=== PATIENT | female | born 1995 | race Caucasian/White ===

== ENCOUNTER → 2016-03-24 | Outpatient (REF) | payer BC | LOC: M LAB REF 13:30 | PROVIDERS: ATTEND Advanced Practice Midwife | DX: Z12.4 Encounter for screening for malignant neoplasm of cervix (principal); Z11.3 Encounter for screening for infections with a predominantly sexual mode of transmission ==

== ENCOUNTER 2016-03-31 11:41 | Inpatient (IN) | payer BC ==
[~2016-03-31] VITALS: Ht 162.6 cm; Wt 74.2 kg
[2016-03-31] MEDS ORDERED: ONDANSETRON 4MG/2ML VIAL (J2405) As Ordered ONE (14:08)
[2016-03-31 14:21] LABS: BASO # 0.1 K/mm3 (0.0-0.2); BASO % 0.4 % (0.0-1.0); EOS # 0.1 K/mm3 (0.0-0.50); EOS % 0.4 % (0.0-3.0); LARGE UNSTAINED CELL # 0.2 K/mm3 (0.0-0.4); LARGE UNSTAINED CELL % 0.7 % (0.0-4.0); LYMPH # 2.1 K/mm3 (1.5-6.5); LYMPH % 9.5 % (24.0-44.0); MEAN CORPUSCULAR HEMOGLOBIN 30.8 pg (27.0-33.0); MEAN CORPUSCULAR HGB CONC 32.7 g/dl (32.0-36.5); MEAN CORPUSCULAR VOLUME 94.2 fl (80.0-96.0); MONO # 0.9 K/mm3 (0.0-0.8); MONO % 4.1 % (0.0-5.0); NEUTROPHILS # 19.2 K/mm3 (1.8-7.7); NEUTROPHILS % 84.9 % (36.0-66.0); PLATELET COUNT, AUTOMATED 346 k/mm3 (150-450); RED CELL DISTRIBUTION WIDTH 12.3 % (11.5-14.5); WHITE BLOOD COUNT 22.6 K/mm3 (4.0-10.0)
[2016-03-31 14:42] LABS: ANION GAP 29 MEQ/L (8-16); BLOOD UREA NITROGEN 23 MG/DL (7-18); CALCIUM LEVEL 9.8 MG/DL (8.5-10.1); CARBON DIOXIDE LEVEL 7 MEQ/L (21-32); CHLORIDE LEVEL 97 MEQ/L (98-107); CREATININE FOR GFR 1.46 MG/DL (0.55-1.02); GLOMERULAR FILTRATION RATE 47.7 (>60); SODIUM LEVEL 133 MEQ/L (136-145)
[2016-03-31 14:49] LABS: GLUCOSE, FASTING 524 MG/DL (70-105); POTASSIUM SERUM 5.9 MEQ/L (3.5-5.1)
[2016-03-31] MEDS ORDERED: HumuLIN R (REGULAR) INSULIN (NovoLIN R) **100U/ML** PER UNIT As Ordered ONE ×2 (15:03→15:21)
[2016-03-31] MEDS: INSULIN HUMAN REGULAR 100 UNITS in NS 99 ML IV SCH ×2 (15:30→18:35)
[2016-03-31 16:09] LABS: ABG BASE EXCESS -25.8 (-2.0-2.0); ABG DEVICE NASAL CANN; ABG HCO3 3.6 MEQ/L (22.0-26.0); ABG PARTIAL PRESSURE O2 123.4 mmHg (75.0-100.0); ABG STANDARD HCO3 7.1 MEQ/L (22.0-26.0); ABG TOTAL CO2 4.1 MEQ/L (22.0-29.0)
[2016-03-31] MEDS ORDERED: PARO10TA84 PO (16:12)
[2016-03-31] MEDS ORDERED: AMBI10TA PO (16:12)
[2016-03-31] MEDS ORDERED: SKYL13.5 IU (16:12)
[2016-03-31 16:14] LABS: ABG PARTIAL PRESSURE CO2 14.7 mmHg (35.0-45.0); ABG pH (ARTERIAL) 7.007 UNITS (7.350-7.450)
[2016-03-31] MEDS ORDERED: INSUH10VL SC (16:15)
[2016-03-31] MEDS ORDERED: NS 1,000 ML IV SCH (16:36)
--- NOTE | 2016-03-31 16:56 | REP ---
Portable chest x-ray: Single view. History: Diabetic ketoacidosis. Cold symptoms. Findings: EKG monitoring electrodes overlie the chest. Heart is not enlarged. The lungs are symmetrically aerated and clear. Pleural angles are sharp. Impression: No active disease. Signed by Del Huffman MD 03/31/2016 06:38 P
[2016-03-31 17:00] LABS: CONTROL LINE HCG INT CTR LINE PRESENT
--- NOTE | 2016-03-31 17:19 | EDDOCDS ---
Physician Documentation [facility] Name: Luz Rizvi Age: 20 yrs Sex: Female : 1995 Arrival Date: 03/31/2016 Time: 11:41 Bed 1 Private MD: Farzana - Complete Info On Cds Disposition: 03/31 15:38 Critical Care:. le Disposition: 03/31/16 15:37 Hospitalization ordered by Matias Alvarado for Observation. 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 - Bed requested for M ICU. - Status is Observation. ck1 - Condition is Stable. - Problem is an acute exacerbation. - Symptoms are unchanged. Historical: - Allergies: Tramadol HCl; - Home Meds: 1. Ambien 10 mg Oral tab 1 tab once daily 2. Paxil 10 mg Oral tab 1 tab once daily 3. Maegan 14 mcg/24 hour (3 years) intrauterine IUD 4. insulin novolog insulin pump - PMHx: Depression; Diabetes - IDDM: uncontrolled; - PSHx: Right ulnar neuropathy repair; Tonsillectomy; - Social history: Smoking status: Patient states former smoker of tobacco. No barriers to communication noted, The patient speaks fluent Khmer, Speaks appropriately for age. - Family history: Not pertinent. - : The pt / caregiver states he / she is not on anticoagulants. Home medication list is obtained from the patient. - Exposure Risk Screening:: None identified. 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 4 in. (162.56 cm); 13:53 BP 121 / 60 (auto/); ck1 13:53 Pulse 85 MON; Pulse Ox 96% ; ck1 14:45 BP 120 / 70; Pulse 119; Resp 24; Temp 98.4(O); Pulse Ox 99% ; mb9 15:18 BP 138 / 60 (auto/); ck1 15:19 Pulse 115 MON; Pulse Ox 100% ; ck1 15:48 BP 138 / 61 (auto/); ck1 15:49 Pulse 119 MON; Pulse Ox 100% ; ck1 16:00 BP 142 / 63 (auto/); ck1 16:00 Pulse 119 MON; Pulse Ox 100% ; ck1 16:15 BP 128 / 76 (auto/); ck1 16:16 Pulse 146 MON; Pulse Ox 75% ; ck1 16:30 BP 145 / 67 (auto/); ck1 16:31 Pulse 123 MON; Pulse Ox 100% ; ck1 16:45 BP 126 / 57 (auto/); ck1 16:46 Pulse 119 MON; Pulse Ox 100% ; ck1 17:00 BP 119 / 55 (auto/); ck1 17:01 Pulse 121 MON; Pulse Ox 100% ; ck1 17:17 BP 99 / 55; Pulse 120; Resp 18; Temp 98.4(T); Pulse Ox 99% on R/A; Pain 0/10; ck1 11:42 Body Mass Index 28.49 (75.30 kg, 162.56 cm) elp MDM: 13:42 Strep Screen, Nursing ordered. le 13:42 IV Saline Lock ordered. le 13:42 Accucheck ordered. le 13:42 NS 0.9% 1000 ml IV at bolus once ordered. le 13:43 -Influenza A&B Rapid Antigen - Nose Ordered. EDMS 13:43 CBC with Diff Ordered. EDMS 13:43 BMP Ordered. EDMS 13:43 Financial registration complete. mm15 13:48 Ondansetron 4 mg IVP once ordered. le 13:50 [facility] Payment Agreement was scanned into [employer] and attached to record. mm15 14:01 Fingerstick Blood Sugar Reviewed. le 14:16 ACETONE/KETONE Ordered. EDMS 14:50 Call Respiratory ordered. le 14:50 NS 0.9% 1000 ml IV at bolus once ordered. le 14:50 Insulin Regular Human 7.5 units IVP once ordered. le 14:50 -Arterial Blood Gas Ordered. EDMS 15:00 Call Respiratory complete. lbd 15:08 Insulin Regular Human 8 units IVP once ordered. mb9 15:08 GATS (NEGATIVE STREP SCREEN) Ordered. EDMS 15:13 CBC with Diff Reviewed. le 15:13 BMP Reviewed. le 15:13 ACETONE/KETONE Reviewed. le 15:13 -Influenza A&B Rapid Antigen - Nose Reviewed. le 15:15 Insulin Regular Human Infusion (0.1units/kg/hr) 0.1 units/kg/hr IV at calculated rate le Per protocol; 7 units/hr ordered. 15:15 Accucheck hourly ordered. le 15:15 BED REQUEST+ADM ordered. EDMS 15:21 Chest, 1 View Ordered. EDMS 15:22 ECG WITH READING ER PHYS+CARDIAG ordered. EDMS 15:45 TROPONIN Ordered. EDMS 15:45 URINALYSIS Ordered. EDMS 15:45 URINE CULTURE Ordered. EDMS 15:45 BLOOD CULTURES Ordered. EDMS 15:45 BLOOD CULTURES Ordered. EDMS 15:56 -Arterial Blood Gas Ordered. EDMS 16:17 -Arterial Blood Gas Reviewed. le 16:17 CBC with Diff Reviewed. le 16:17 BMP Reviewed. le 16:17 ACETONE/KETONE Reviewed. le 16:17 LIPASE Reviewed. le 16:17 TROPONIN Reviewed. le 16:28 Fingerstick Blood Sugar Ordered. EDMS 16:38 DRUG EVAL TOXICOLOGY ED ONLY Ordered. EDMS 16:38 HCG, QUALITATIVE Ordered. EDMS 16:41 Admission / Observation Status ordered. EDMS 16:41 NPO DIET ordered. EDMS 16:41 HEMOGLOBIN A1C Ordered. EDMS 16:42 MAGNESIUM LEVEL Ordered. EDMS 16:42 BASIC METABOLIC PROFILE Ordered. EDMS 16:42 BASIC METABOLIC PROFILE Ordered. EDMS 16:42 BASIC METABOLIC PROFILE Ordered. EDMS 16:42 BASIC METABOLIC PROFILE Ordered. EDMS 16:42 PHOSPHOROUS LEVEL Ordered. EDMS 16:43 RESPIRATORY PANEL Ordered. EDMS 16:50 DRUG EVAL TOXICOLOGY ED ONLY Ordered. EDMS Point of Care Testing: Blood Glucose: 13:46 Blood Glucose: 471 mg/dL; mb9 14:51 Blood Glucose: High; mb9 13:46 Izabela Alexa aware mb9 14:51 Izabela Alexa aware. No order recieved to draw glucomconfirm. mb9 Ranges: Administered Medications: 14:19 Drug: Ondansetron 4 mg [ondansetron HCl 2 mg/mL intravenous solution (2 mL)] Route: mb9 IVP; Site: right antecubital; 14:44 Follow up: Response: Nausea is unchanged mb9 14:20 Drug: NS 0.9% 1000 ml [sodium chloride 0.9 % intravenous solution] Route: IV; Rate: mb9 bolus; Site: right antecubital; 14:44 Follow up: IV Intake: 1000ml mb9 15:08 Drug: NS 0.9% 1000 ml [sodium chloride 0.9 % intravenous solution] Route: IV; Rate: mb9 bolus; Site: left antecubital; 15:50 Follow up: IV Status: Completed infusion ck1 15:08 Not Given (Other Intervention Used): Insulin Regular Human 7.5 units IVP once mb9 15:09 Drug: Insulin Regular Human 8 units [insulin regular human 100 unit/mL injection mb9 solution (0.08 mL)] {Co-Signature: jenny (Bertha Banda RN).} Route: IVP; Site: right antecubital; 15:27 Drug: Insulin Regular Human Infusion (0.1units/kg/hr) 7.53 units/hr [insulin regular mb9 human 100 unit/mL injection solution] {Co-Signature: ck1 (Olamide Gunderson RN).} Route: IV; Rate: calculated rate; Site: left antecubital; 17:16 Follow up: IV Status: Infusion continued upon admit ck1 Critical Care Time: 15:38 Critical care time: Bedside Care: 20 minutes, Consultation: 10 minutes. Total time: 30 le minutes Signatures: Dispatcher [employer] EDRenetta Ba, Lime Filter Operator Unit lbd Fabio Menendez RN RN mlb1 Olamide GundersonRN RN ck1 Izabela Hernandes FNP FNP le McGrath, Marlynn mm15 Fabio Aldrich,RN RN mb9 Casey Cannon RN RN mts Bertha Banda RN kpj Olamide Gunderson RN ck1 The chart was reviewed and I authenticate all verbal orders and agree with the evaluation and treatment provided.Corrections: (The following items were deleted from the chart) 14:16 13:50 ACETONE/KETONE+LAB ordered. EDMS EDMS 14:51 14:21 VENOUS BLOOD GAS+LAB ordered. EDMS EDMS 15:53 15:45 LIPASE ordered. EDMS EDMS 15:53 15:45 TROPONIN ordered. EDMS EDMS 16:41 15:52 CONSISTENT CARBOHYDRATE+DIET ordered. EDMS EDMS Attachments: 13:50 [facility] Payment Agreement mm15 MTDD
--- NOTE | 2016-03-31 17:19 | EDDOCDS ---
Nurse's Notes [facility] Name: Luz Rizvi Age: 20 yrs Sex: Female : 1995 Arrival Date: 03/31/2016 Time: 11:41 Bed 1 Private MD: Farzana - Complete Info On Cds Diagnosis: Diabetes mellitus due to underlying condition with ketoacidosis without coma Presentation: 03/31 11:47 Presenting complaint: Patient states: Flu like symptoms began last evening, body aches mlb1 N/V. Adult Sepsis Screening: The patient does not have new or worsening altered mentation. Patient's respiratory rate is less than 22. Systolic blood pressure is greater than 100. Patient has a qSOFA score of 0- Negative Sepsis Screen. Suicide/Homicide risk assessment- the patient denies having any suicidal and/or homicidal ideations and does not present with any other emotional, behavioral or mental health complaints. Transition of care: patient was not received from another setting of care. 11:47 Acuity: STEVIE Level 4 mlb1 11:47 Method Of Arrival: Walkin/Carried/Asstd mlb1 11:57 Status: The patient is a dependent. mlb1 14:14 Acuity level changed due to complexity of care. mb9 14:14 Acuity: STEVIE Level 3 mb9 Triage Assessment: 11:59 General: Appears distressed, Behavior is appropriate for age, cooperative. Pain: mlb1 Location: "all over" Pain currently is 8 out of 10 on a pain scale. HIV screening NA for this visit Offered previously. 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 Ambien 10 mg Oral tab 1 tab once daily 2. Paxil 10 mg Oral tab 1 tab once daily 3. Maegan 14 mcg/24 hour (3 years) intrauterine IUD 4. insulin novolog insulin pump - PMHx: Depression; Diabetes - IDDM: uncontrolled; - PSHx: Right ulnar neuropathy repair; Tonsillectomy; - Social history: Smoking status: Patient states former smoker of tobacco. No barriers to communication noted, The patient speaks fluent Bahamian, Speaks appropriately for age. - Family history: Not pertinent. - : The pt / caregiver states he / she is not on anticoagulants. Home medication list is obtained from the patient. - Exposure Risk Screening:: None identified. Screenin:28 Screening information is obtained from the patient. Fall risk: No risks identified. ck1 Assistance ADL's: requires no assistance with activities of daily living. Abuse/DV Screen: The patient / caregiver reports he/she is: not in a situation that causes fear, pain or injury. Nutritional screening: No deficits noted. Advance Directives: Currently, there is no health care proxy. home support is adequate. Assessment: 14:16 General: Appears uncomfortable, Behavior is appropriate for age, cooperative. Pain: mb9 Denies pain. Neurological: Level of Consciousness is awake, alert, Oriented to person, place, time. Respiratory: Airway is patent Respiratory effort is even, Respiratory pattern is Kussmaul Breath sounds are clear bilaterally. GI: Reports nausea, vomiting. 15:28 General: Appears ill, Behavior is. Pain: Denies pain. Neurological: Level of ck1 Consciousness is awake, alert, Oriented to person, place, time. Respiratory: Respiratory effort is unlabored, Respiratory pattern is regular, symmetrical. GI: Reports nausea, vomiting. Derm: Skin is pale. Musculoskeletal: No deficits noted. 16:23 General: Appears ill, Behavior is appropriate for age, cooperative. Neurological: Level ck1 of Consciousness is awake, alert, obeys commands, Oriented to person, place, time. Cardiovascular: Rhythm is sinus tachycardia Chest pain is denied. Respiratory: Respiratory effort is unlabored, Respiratory pattern is regular, symmetrical. GI: other tolerating PO fluids without difficulty. Derm: Skin is pale. 17:17 Reassessment: Patient appears in no apparent distress at this time. Patient denies pain ck1 at this time. Respiratory: Respiratory effort is unlabored, Respiratory pattern is regular, symmetrical. GI: Reports tolerance of fluids. Derm: Skin is pale. Musculoskeletal: No deficits noted. Vital Signs: 11:42 BP 137 / 63; Pulse 106; Resp 18; Temp 96.5; Pulse Ox 99% ; Weight 75.3 kg; Height 5 ft. elp 4 in. (162.56 cm); 13:53 BP 121 / 60 (auto/); ck1 13:53 Pulse 85 MON; Pulse Ox 96% ; ck1 14:45 BP 120 / 70; Pulse 119; Resp 24; Temp 98.4(O); Pulse Ox 99% ; mb9 15:18 BP 138 / 60 (auto/); ck1 15:19 Pulse 115 MON; Pulse Ox 100% ; ck1 15:48 BP 138 / 61 (auto/); ck1 15:49 Pulse 119 MON; Pulse Ox 100% ; ck1 16:00 BP 142 / 63 (auto/); ck1 16:00 Pulse 119 MON; Pulse Ox 100% ; ck1 16:15 BP 128 / 76 (auto/); ck1 16:16 Pulse 146 MON; Pulse Ox 75% ; ck1 16:30 BP 145 / 67 (auto/); ck1 16:31 Pulse 123 MON; Pulse Ox 100% ; ck1 16:45 BP 126 / 57 (auto/); ck1 16:46 Pulse 119 MON; Pulse Ox 100% ; ck1 17:00 BP 119 / 55 (auto/); ck1 17:01 Pulse 121 MON; Pulse Ox 100% ; ck1 17:17 BP 99 / 55; Pulse 120; Resp 18; Temp 98.4(T); Pulse Ox 99% on R/A; Pain 0/10; ck1 11:42 Body Mass Index 28.49 (75.30 kg, 162.56 cm) elp Vitals: 11:42 Log In Time: March 31, 2016 at 11:40. elp 15:14 Strep Screen is obtained and tested: Negative, [facility]G [facility] and sent. ED Course: 11:42 Patient visited by Vanessa Lyons PCA. elp 11:42 Other - Complete Info On Cds is Private Physician. elp 11:42 Patient moved to Waiting elp 11:43 Patient visited by Vanessa Lyons PCA. elp 11:43 Patient moved to Pre RCE elp 11:47 Patient visited by Fabio Menendez, REMBERTO. mlb1 11:50 Triage Initiated mlb1 12:00 Patient visited by Fabio Menendez, REMBERTO. mlb1 13:14 [facility]abela Hernandes [facility] le 13:14 Patient moved to 31 mcp 13:26 Patient visited by Izabela Hernandes FNP. le 13:26 Patient visited by Izabela Hernandes FNP. le 13:50 [facility] Payment Agreement was scanned into [employer] and attached to record. mm15 13:53 Patient name changed from Luz\\S\\\\S\\Dmitri\\S\\ to Luz\\S\\ \\S\\Dmitri. EDMS 14:17 Inserted saline lock: 18 gauge in right antecubital area and blood collected. The mb9 patient tolerated the procedure well. 14:19 Patient visited by Fabio Aldrich RN. mb9 14:19 ACETONE/KETONE Sent. mb9 14:59 Patient moved to 1 [facility] 15:12 Patient visited by Olamide Gunderson RN. ck1 15:16 GATS (NEGATIVE STREP SCREEN) Sent. ck1 15:26 Patient visited by Olamide Gunderson RN. ck1 15:26 Inserted saline lock: 20 gauge in left antecubital area The patient tolerated the ck1 procedure well. 15:28 The patient / caregiver is instructed regarding the plan of care and ED course. ck1 15:37 Matias Alvarado is Hospitalizing Provider. le 15:37 EKG done. (by ED staff). Reviewed by Izabela MELENDEZ. jrd 16:06 -Arterial Blood Gas Sent. cs15 16:23 PO fluids given. Pillow given. ck1 16:24 No procedures done that require assistance. ck1 17:13 Chest, 1 View Returned. EDMS Administered Medications: 14:19 Drug: Ondansetron 4 mg [ondansetron HCl 2 mg/mL intravenous solution (2 mL)] Route: mb9 IVP; Site: right antecubital; 14:44 Follow up: Response: Nausea is unchanged mb9 14:20 Drug: NS 0.9% 1000 ml [sodium chloride 0.9 % intravenous solution] Route: IV; Rate: mb9 bolus; Site: right antecubital; 14:44 Follow up: IV Intake: 1000ml mb9 15:08 Drug: NS 0.9% 1000 ml [sodium chloride 0.9 % intravenous solution] Route: IV; Rate: mb9 bolus; Site: left antecubital; 15:50 Follow up: IV Status: Completed infusion ck1 15:08 Not Given (Other Intervention Used): Insulin Regular Human 7.5 units IVP once mb9 15:09 Drug: Insulin Regular Human 8 units [insulin regular human 100 unit/mL injection mb9 solution (0.08 mL)] {Co-Signature: jenny (Bertha Banda RN).} Route: IVP; Site: right antecubital; 15:27 Drug: Insulin Regular Human Infusion (0.1units/kg/hr) 7.53 units/hr [insulin regular mb9 human 100 unit/mL injection solution] {Co-Signature: ck1 (Olamide Gunderson RN).} Route: IV; Rate: calculated rate; Site: left antecubital; 17:16 Follow up: IV Status: Infusion continued upon admit ck1 Point of Care Testing: Blood Glucose: 13:46 Blood Glucose: 471 mg/dL; mb9 14:51 Blood Glucose: High; mb9 13:46 Izabela Alexa aware mb9 14:51 Izabela Alexa aware. No order recieved to draw glucomconfirm. mb9 Ranges: Intake: 14:44 IV: 1000.00ml; Total: 1000.00ml. mb9 RT: 16:06 ABG's drawn from left radial artery allens test done and positive pressure held for 5 cs15 minutes no bleeding noted pressure bandage applied specimen sent pt. tolerated well. Oxygen is room air. Respiratory: Respiratory pattern is Kussmaul. Order Results: Lab Order: -Influenza A&B Rapid Antigen - Nose; SPEC'M 03/31/16 14:02 Test: INFLUENZA A RAPID SCR by ICA; Value: INFLUENZA A RESULTS NEGATIVE; Status: F Test: INFLUENZA A RAPID SCR by ICA; Value: Comments:; Status: F Test: INFLUENZA B RAPID SCR by ICA; Value: INFLUENZA B RESULTS NEGATIVE; Status: F Test Note: ; The Influenza test is a direct rapid immunoassay for the qualitative detection of Influenza viral antigen. Cell culture (Viral Culture) testing should be considered to confirm NEGATIVE results and to assist in detecting other viruses that can provide similar clinical symptoms. Please contact the lab within 24 hours ([phone]) if confirmatory testing is desired. Lab Order: CBC with Diff; SPEC'M 03/31/16 14:02 Test: WHITE BLOOD COUNT; Value: 22.6; Range: 4.0-10.0; Abnormal: Above high normal; Units: K/mm3; Status: F Test: RED BLOOD COUNT; Value: 4.98; Range: 4.00-5.40; Units: M/mm3; Status: F Test: HEMOGLOBIN; Value: 15.4; Range: 12.0-16.0; Units: g/dl; Status: F Test: HEMATOCRIT; Value: 46.9; Range: 36.0-47.0; Units: %; Status: F Test: MEAN CORPUSCULAR VOLUME; Value: 94.2; Range: 80.0-96.0; Units: fl; Status: F Test: MEAN CORPUSCULAR HEMOGLOBIN; Value: 30.8; Range: 27.0-33.0; Units: pg; Status: F Test: MEAN CORPUSCULAR HGB CONC; Value: 32.7; Range: 32.0-36.5; Units: g/dl; Status: F Test: RED CELL DISTRIBUTION WIDTH; Value: 12.3; Range: 11.5-14.5; Units: %; Status: F Test: PLATELET COUNT, AUTOMATED; Value: 346; Range: 150-450; Units: k/mm3; Status: F Test: NEUTROPHILS %; Value: 84.9; Range: 36.0-66.0; Abnormal: Above high normal; Units: %; Status: F Test: LYMPH %; Value: 9.5; Range: 24.0-44.0; Abnormal: Below low normal; Units: %; Status: F Test: MONO %; Value: 4.1; Range: 0.0-5.0; Units: %; Status: F Test: EOS %; Value: 0.4; Range: 0.0-3.0; Units: %; Status: F Test: BASO %; Value: 0.4; Range: 0.0-1.0; Units: %; Status: F Test: LARGE UNSTAINED CELL %; Value: 0.7; Range: 0.0-4.0; Units: %; Status: F Test: NEUTROPHILS #; Value: 19.2; Range: 1.8-7.7; Abnormal: Above high normal; Units: K/mm3; Status: F Test: LYMPH #; Value: 2.1; Range: 1.5-6.5; Units: K/mm3; Status: F Test: MONO #; Value: 0.9; Range: 0.0-0.8; Abnormal: Above high normal; Units: K/mm3; Status: F Test: EOS #; Value: 0.1; Range: 0.0-0.50; Units: K/mm3; Status: F Test: BASO #; Value: 0.1; Range: 0.0-0.2; Units: K/mm3; Status: F Test: LARGE UNSTAINED CELL #; Value: 0.2; Range: 0.0-0.4; Units: K/mm3; Status: F Lab Order: BMP; SPEC'03/31/16 14:02 Test: GLUCOSE, FASTING; Value: 524; Range: 70-105; Abnormal: Above upper panic limits; Units: MG/DL; Status: F Test: BLOOD UREA NITROGEN; Value: 23; Range: 7-18; Abnormal: Above high normal; Units: MG/DL; Status: F Test: CREATININE FOR GFR; Value: 1.46; Range: 0.55-1.02; Abnormal: Above high normal; Units: MG/DL; Status: F Test: GLOMERULAR FILTRATION RATE; Value: 47.7; Range: >60; Abnormal: Below low normal; Status: F Test: SODIUM LEVEL; Value: 133; Range: 136-145; Abnormal: Below low normal; Units: MEQ/L; Status: F Test: POTASSIUM SERUM; Value: 5.9; Range: 3.5-5.1; Abnormal: Above high normal; Units: MEQ/L; Status: F Test: CHLORIDE LEVEL; Value: 97; Range: 98-107; Abnormal: Below low normal; Units: MEQ/L; Status: F Test: CARBON DIOXIDE LEVEL; Value: 7; Range: 21-32; Abnormal: Below low normal; Units: MEQ/L; Status: F Test: ANION GAP; Value: 29; Range: 8-16; Abnormal: Above high normal; Units: MEQ/L; Status: F Test: CALCIUM LEVEL; Value: 9.8; Range: 8.5-10.1; Units: MG/DL; Status: F Test Note: ; Units are mL/min/1.73 m2 Chronic Kidney Disease Staging per NKF: Stage I & II GFR >=60 Normal to Mildly Decreased Stage III GFR 30-59 Moderately Decreased Stage IV GFR 15-29 Severely Decreased Stage V GFR <15 Very Little GFR Left ESRD GFR <15 on DROP HAMMER SETTER UP Lab Order: Fingerstick Blood Sugar; SPEC'03/31/16 13:46 Test: BEDSIDE GLUCOSE; Value: 471; Range: 70-105; Abnormal: Above high normal; Units: MG/DL; Status: F Lab Order: ACETONE/KETONE; SPEC'M 03/31/16 14:02 Test: ACETONE/KETONE; Value: > 46.00; Range: <2.81; Abnormal: Above high normal; Units: MG/DL; Status: F Lab Order: -Arterial Blood Gas; SPEC'M 03/31/16 16:04 Test: ABG pH (ARTERIAL); Value: 7.007; Range: 7.350-7.450; Abnormal: Critical Low; Units: UNITS; Status: F Test: ABG PARTIAL PRESSURE CO2; Value: 14.7; Range: 35.0-45.0; Abnormal: Critical Low; Units: mmHg; Status: F Test: ABG PARTIAL PRESSURE O2; Value: 123.4; Range: 75.0-100.0; Abnormal: Above high normal; Units: mmHg; Status: F Test: ABG TOTAL CO2; Value: 4.1; Range: 22.0-29.0; Abnormal: Below low normal; Units: MEQ/L; Status: F Test: ABG HCO3; Value: 3.6; Range: 22.0-26.0; Abnormal: Below low normal; Units: MEQ/L; Status: F Test: ABG BASE EXCESS; Value: -25.8; Range: -2.0-2.0; Abnormal: Below low normal; Status: F Test: ABG STANDARD HCO3; Value: 7.1; Range: 22.0-26.0; Abnormal: Below low normal; Units: MEQ/L; Status: F Test: ABG O2 SATURATION; Value: 97.5; Range: 95.0-99.0; Units: %; Status: F Test: ABG DEVICE; Value: NASAL ALIA; Status: F Lab Order: TROPONIN; SPEC'M 03/31/16 14:02 Test: TROPONIN I; Value: < 0.02; Range: < 0.10; Units: NG/ML; Status: F Test Note: ; Troponin I Reference Interval for [employer] LOCI: 99th Percentile= 0.00-0.045 ng/ml Risk Stratification: <= 0.10 ng/ml Decreased Risk for Adverse Clinical Events. 0.10-1.50 ng/ml Increased Risk for Adverse Clinical Events. Evaluation of additional criterion and/or repeat testing in 2-6 hours is suggested to rule out myocardial damage. >= 1.50 ng/ml Indicative of Myocardial Injury. Lab Order: LIPASE; SPEC' 03/31/16 14:02 Test: LIPASE; Value: 50; Range: 73-393; Abnormal: Below low normal; Units: U/L; Status: F Lab Order: Fingerstick Blood Sugar; [facility]03/31/16 16:19 Test: BEDSIDE GLUCOSE; Value: 534; Range: 70-105; Abnormal: Above upper panic limits; Units: MG/DL; Status: F Test Note: ; RN Notified Lab Order: HCG, QUALITATIVE; SPEC03/31/16 14:02 Test: HCG, SERUM QUALITATIVE; Value: NEGATIVE; Range: NEGATIVE; Status: F Lab Order: HEMOGLOBIN A1C; [facility]' 03/31/16 14:02 Test: HEMOGLOBIN A1c; Value: 8.5; Range: 4.5-6.2; Abnormal: Above high normal; Units: %; Status: F Test: ESTIMATED AVERAGE GLUCOSE; Value: 197; Range: 60-110; Abnormal: Above high normal; Units: MG/DL; Status: F Radiology Order: Chest, 1 View Test: Chest, 1 View REASON FOR EXAMINATION: DKA, cold sxs; Portable chest x-ray: Single view.; ; History: Diabetic ketoacidosis. Cold symptoms.; ; Findings: EKG monitoring electrodes overlie the chest. Heart is not enlarged.; The lungs are symmetrically aerated and clear. Pleural angles are sharp.; ; Impression:; ; No active disease.; ; ; ; ; Unreviewed; Outcome: 15:37 Decision to Hospitalize by Provider. le 17:00 Discharge Assessment: Patient awake, alert and oriented x 3. No cognitive and/or ck1 functional deficits noted. Patient verbalized understanding of disposition instructions. patient administered narcotics - no. No special radiology studies were completed. Property :Personal belongings accompany Pt. 17:09 The following High Risk Discharge criteria are identified: None. Admitted to ICU ck1 accompanied by nurse, accompanied by tech, via stretcher, on monitor, with chart. Condition: stable. Admission hand-off: Report called to Marcia Wagner RN. 17:18 Patient left the ED. ck1 Signatures: Dispatcher [employer] EDFelicita Bocanegra, RN RN [facility] Fabio Menendez RN RN mlb1 Olamide Gunderson RN RN ck1 Izabela Hernandes, MILITARY NURSE MILITARY NURSE Francoise Perez mm15 Patchen, Vanessa, CLERK GENERAL CLERK GENERAL elp Syed Duff, CLERK GENERAL CLERK GENERAL jrd Fabio Aldrich RN RN mb9 Matthew Rodriguez,RT RT cs15 Bertha Banda RN [facility] Olamide Gunderson RN ck1 Corrections: (The following items were deleted from the chart) 14:52 14:45 Blood Glucose: Notes=Izabela Liu aware., Blood Glucose Reading=High. mary grace mb9 MTDD
[2016-03-31 17:27] LABS: CALCIUM LEVEL 8.6 MG/DL (8.5-10.1); CREATININE FOR GFR 1.27 MG/DL (0.55-1.02); MAGNESIUM LEVEL 1.8 MG/DL (1.8-2.4); PHOSPHORUS LEVEL 4.9 MG/DL (2.5-4.9); POTASSIUM SERUM 4.6 MEQ/L (3.5-5.1)
[2016-03-31 17:30] VITALS: BP 122/56
[2016-03-31] MEDS: INSULIN IV RATE CHANGE DOCUMENTATION ML/HR XX SCH ×4 (17:36→23:05)
[2016-03-31] MEDS: cefTRIAXone SOD 1 GM in D5W MINI-BAG PLUS 50 ML IV SCH (17:45)
[2016-03-31 18:00] VITALS: BP 125/59
[2016-03-31 19:40] LABS: CALCIUM LEVEL 8.7 MG/DL (8.5-10.1); CREATININE FOR GFR 1.25 MG/DL (0.55-1.02); GLOMERULAR FILTRATION RATE 57.1 (>60); POTASSIUM SERUM 4.7 MEQ/L (3.5-5.1)
[2016-03-31 20:00] VITALS: BP 111/54
[2016-03-31 20:10] LABS: AMPHETAMINES LEVEL URINE NEGATIVE (NEGATIVE); BENZODIAZEPINES URINE NEGATIVE (NEGATIVE); COCAINE METABOLITE URINE NEGATIVE (NEGATIVE); CONTROL LINE INT CTR LINE PRESENT; METHADONE URINE NEGATIVE (NEGATIVE); OPIATES URINE NEGATIVE (NEGATIVE); TRICYCLIC ANTIDEPRESS URINE NEGATIVE (NEGATIVE)
--- NOTE | 2016-03-31 20:30 | HPE ---
DATE OF ADMISSION: 03/31/2016 PRIMARY CARE PROVIDER: Bertha Garcia CHIEF COMPLAINT: Weakness, belly pain. HISTORY OF PRESENT ILLNESS: The patient is a 20-year-old female, type 1 diabetic, insulin dependent on an insulin infusion pump, who was in her usual state of health the day before yesterday; however, over the last 24 to 48 hours she has had progressively worsening body aches, weakness. She reports some subjective chills, but never measured her body temperature. She denies cough, sick contacts, diarrhea, changes in diet, changes in her pump infusion site. Otherwise, she is feeling well. Prior to this, she reports feeling dry mouth and abdominal pain worsening today. The patient is unfamiliar with what diabetic ketoacidosis is. She tells me that she was last in the hospital with a very high blood sugar greater than two to three years ago. PAST MEDICAL HISTORY: 1. Insomnia. The patient is on Ambien. 2. Depression. The patient is on Paxil. ALLERGIES: TRAMADOL, extremities go numb. PAST SURGICAL HISTORY: Right ulnar neuropathy repair, tonsillectomy. SOCIAL HISTORY: The patient is a former smoker, she quit approximately one month ago. She denies any alcohol or illicit drug use. She lives with her boyfriend and his brother. FAMILY HISTORY: Noncontributory. REVIEW OF SYSTEMS: Negative other than in the history of present illness. HOME MEDICATIONS: - Ambien 10 mg at night - Paxil 10 mg daily - 14 mcg per 24 hour cycle for the last three years - intrauterine device - insulin infusion pump PHYSICAL EXAMINATION: Blood pressure 137/63, pulse 106, respiratory rate 18, temperature 96.5, oxygen saturation 99% on room air. GENERAL: She is a young, slim, female lying on a stretcher at a 30 degree angle. She does not appear to be in any acute distress. She appears to be tired. She is awake, alert, oriented times three. HEENT: Cranial nerves II through XII are grossly intact. She has very dry mucous membranes. No elevation of central venous pressure. CARDIOVASCULAR EXAM: S1, S2. She is mildly tachycardic. RESPIRATORY EXAM: Clear. ABDOMINAL EXAM: Benign. Her pump infusion site does not appear to be scarred or abnormal in any way. EXTREMITIES: No clubbing, cyanosis or edema. LABORATORY STUDIES: WBC 22.6, hemoglobin 15.4, hematocrit 46.9, platelet count 346. Arterial blood gas shows pH of 7.00, PCO2 14.7, PO2 of 123.4. Chemistry panel: Sodium 133, potassium 5.9, chloride 97, bicarbonate is 7, anion gap is 29, BUN 23, creatinine 1.4, fasting glucose 524, beta hydroxybutyrate level is greater than 46. Influenza swab is pending. Blood culture is pending. Group A Streptococcus screen is pending. IMAGING: The patient did have a chest x-ray, which does not reveal any active disease by a preliminary read. ASSESSMENT AND PLAN: This is a 20-year-old female presenting now with diabetic ketoacidosis. 1. DKA. The patient will be admitted to the medical intensive care unit (ICU). We will check two hour basic metabolic panel (BMP), every 1 hour fingersticks. She has been started on insulin drip in the emergency room. We will provide her with generous normal saline. We will check a magnesium and phosphorous level, as well as a hemoglobin A1/c. We will check a UA, urine culture, lipase, troponin. At this time, it is unclear the etiology for this patient's DKA. She appears to be adherent with medical therapies and there is likely some secondary cause driving it. At this time, we have no UA. The patient does have significant leukocytosis and tachycardia. I will err on the side of caution and provide her with ceftriaxone 1 gram IV every 24 hours. I will also check a respiratory panel to rule out potential viral syndrome driving this process. She will be admitted to the intensive care unit (ICU) and treated for DKA in the usual protocol manner. 2. Depression. The patient will be continued on Paxil. 3. Insomnia. Given the patient is somewhat lethargic and acidotic, we will hold her Ambien. 4. Deep vein thrombosis (DVT) prophylaxis. The patient will be on Lovenox. 5. Acute kidney injury. This is likely secondary to osmotic diuresis. 6. Anion gap acidosis secondary to DKA. 7. Hyperkalemia secondary to dehydration. We will check every 2 hour BMP and monitor closely while she is rehydrated. DISPOSITION: The patient is admitted to the medical intensive care unit to Dr. Kelly's service, who will continue following the patient tomorrow morning at 7:00 a.m.
[2016-03-31 21:08] LABS: CALCIUM LEVEL 8.3 MG/DL (8.5-10.1); CREATININE FOR GFR 1.23 MG/DL (0.55-1.02); GLOMERULAR FILTRATION RATE 58.1 (>60); POTASSIUM SERUM 4.6 MEQ/L (3.5-5.1)
[2016-03-31 22:00] VITALS: BP 112/53
[2016-03-31 22:49] LABS: ANION GAP 17 MEQ/L (8-16); BLOOD UREA NITROGEN 16 MG/DL (7-18); CALCIUM LEVEL 8.2 MG/DL (8.5-10.1); CARBON DIOXIDE LEVEL 10 MEQ/L (21-32); CHLORIDE LEVEL 112 MEQ/L (98-107); CREATININE FOR GFR 1.17 MG/DL (0.55-1.02); GLOMERULAR FILTRATION RATE > 60.0 (>60); GLUCOSE, FASTING 229 MG/DL (70-105); POTASSIUM SERUM 4.1 MEQ/L (3.5-5.1); SODIUM LEVEL 139 MEQ/L (136-145)
[2016-03-31] MEDS: D5W/0.45% SODIUM CHLORIDE 1,000 ML IV SCH (23:26)
[2016-04-01] VITALS (8 sets, daily range): BP systolic 96–120; BP diastolic 50–58
[2016-04-01] MEDS: INSULIN IV RATE CHANGE DOCUMENTATION ML/HR XX SCH ×5 (00:09→22:09)
[2016-04-01 01:04] LABS: ANION GAP 16 MEQ/L (8-16); BLOOD UREA NITROGEN 15 MG/DL (7-18); CALCIUM LEVEL 8.1 MG/DL (8.5-10.1); CARBON DIOXIDE LEVEL 11 MEQ/L (21-32); CHLORIDE LEVEL 109 MEQ/L (98-107); CREATININE FOR GFR 1.07 MG/DL (0.55-1.02); GLOMERULAR FILTRATION RATE > 60.0 (>60); GLUCOSE, FASTING 254 MG/DL (70-105); POTASSIUM SERUM 3.9 MEQ/L (3.5-5.1); SODIUM LEVEL 136 MEQ/L (136-145)
[2016-04-01 03:08] LABS: ANION GAP 16 MEQ/L (8-16); BLOOD UREA NITROGEN 15 MG/DL (7-18); CARBON DIOXIDE LEVEL 13 MEQ/L (21-32); CHLORIDE LEVEL 109 MEQ/L (98-107); CREATININE FOR GFR 1.12 MG/DL (0.55-1.02); GLOMERULAR FILTRATION RATE > 60.0 (>60); GLUCOSE, FASTING 290 MG/DL (70-105); SODIUM LEVEL 138 MEQ/L (136-145)
[2016-04-01 05:08] LABS: ANION GAP 11 MEQ/L (8-16); BLOOD UREA NITROGEN 14 MG/DL (7-18); CARBON DIOXIDE LEVEL 16 MEQ/L (21-32); CHLORIDE LEVEL 109 MEQ/L (98-107); CREATININE FOR GFR 1.08 MG/DL (0.55-1.02); GLOMERULAR FILTRATION RATE > 60.0 (>60); GLUCOSE, FASTING 304 MG/DL (70-105); POTASSIUM SERUM 3.9 MEQ/L (3.5-5.1); SODIUM LEVEL 136 MEQ/L (136-145)
[2016-04-01] MEDS: ACETAMINOPHEN TAB 650MG DOSE (2X325MG) PO PRN ×2 (05:19→15:37)
[2016-04-01] MEDS: ONDANSETRON 4MG/2ML VIAL (J2405) IV PRN ×2 (05:19→18:30)
[2016-04-01] MEDS: D5W/0.45% SODIUM CHLORIDE 1,000 ML IV SCH (05:20)
--- NOTE | 2016-04-01 06:50 | ECGEPIP ---
Stationary ECG Study [facility] - ED Test Date: 2016-03-31 Pat Name: SHILPA MARAVILLA Department: Room: - Gender: F Trauma Program Manager: [email or web address] : 1995 Requested By: SHARON MELENDEZ Order Number: [id number] Reading MD: Melvi Ellison Measurements Intervals [place] Rate: 117 P: 70 FL: 161 QRS: 17 QRSD: 79 T: 56 QT: 315 QTc: 440 Interpretive Statements SINUS TACHYCARDIA WITH OCCASIONAL VENTRICULAR PREMATURE COMPLEXES ABNORMAL RHYTHM ECG LOW VOLTAGE LIMB INCREASED RATE 09/12/13 Electronically Signed On 04-01-2016 6:49:52 EST by Melvi Ellison
[2016-04-01 07:40] LABS: ANION GAP 13 MEQ/L (8-16); BLOOD UREA NITROGEN 13 MG/DL (7-18); CALCIUM LEVEL 8.1 MG/DL (8.5-10.1); CARBON DIOXIDE LEVEL 15 MEQ/L (21-32); CHLORIDE LEVEL 108 MEQ/L (98-107); CREATININE FOR GFR 1.06 MG/DL (0.55-1.02); GLOMERULAR FILTRATION RATE > 60.0 (>60); GLUCOSE, FASTING 299 MG/DL (70-105); POTASSIUM SERUM 3.8 MEQ/L (3.5-5.1); SODIUM LEVEL 136 MEQ/L (136-145)
[2016-04-01 08:33] LABS: ANION GAP 12 MEQ/L (8-16); BLOOD UREA NITROGEN 13 MG/DL (7-18); CALCIUM LEVEL 8.1 MG/DL (8.5-10.1); CARBON DIOXIDE LEVEL 16 MEQ/L (21-32); CHLORIDE LEVEL 108 MEQ/L (98-107); CREATININE FOR GFR 0.99 MG/DL (0.55-1.02); GLOMERULAR FILTRATION RATE > 60.0 (>60); GLUCOSE, FASTING 295 MG/DL (70-105); POTASSIUM SERUM 3.9 MEQ/L (3.5-5.1); SODIUM LEVEL 136 MEQ/L (136-145)
[2016-04-01] MEDS: PARoxetine 10MG TABLET PO SCH (08:55)
[2016-04-01] MEDS: ENOXAPARIN 40 MG/0.4 ML SYRINGE (J1650) SC SCH (08:55)
[2016-04-01] MEDS: PANTOPRAZOLE 40MG INJ (PROTONIX) (C9113) IV SCH (08:55)
[2016-04-01 10:13] LABS: MEAN CORPUSCULAR HGB CONC 34.5 g/dl (32.0-36.5); RED CELL DISTRIBUTION WIDTH 13.5 % (11.5-14.5); WHITE BLOOD COUNT 18.9 K/mm3 (4.0-10.0)
[2016-04-01 10:38] LABS: MEAN CORPUSCULAR VOLUME 86.9 fl (80.0-96.0)
[2016-04-01 10:40] LABS: ANION GAP 11 MEQ/L (8-16); BLOOD UREA NITROGEN 12 MG/DL (7-18); CALCIUM LEVEL 8.2 MG/DL (8.5-10.1); CARBON DIOXIDE LEVEL 18 MEQ/L (21-32); CHLORIDE LEVEL 108 MEQ/L (98-107); CREATININE FOR GFR 1.04 MG/DL (0.55-1.02); GLOMERULAR FILTRATION RATE > 60.0 (>60); GLUCOSE, FASTING 296 MG/DL (70-105); POTASSIUM SERUM 3.7 MEQ/L (3.5-5.1); SODIUM LEVEL 137 MEQ/L (136-145)
[2016-04-01 12:54] LABS: ANION GAP 11 MEQ/L (8-16); BLOOD UREA NITROGEN 11 MG/DL (7-18); CALCIUM LEVEL 8.3 MG/DL (8.5-10.1); CARBON DIOXIDE LEVEL 18 MEQ/L (21-32); CHLORIDE LEVEL 107 MEQ/L (98-107); CREATININE FOR GFR 0.99 MG/DL (0.55-1.02); GLOMERULAR FILTRATION RATE > 60.0 (>60); GLUCOSE, FASTING 301 MG/DL (70-105); POTASSIUM SERUM 3.9 MEQ/L (3.5-5.1); SODIUM LEVEL 136 MEQ/L (136-145)
--- NOTE | 2016-04-01 13:29 | IPNPDOC ---
Assessment/Plan Date Seen The patient was seen on 04/01/16. Plan / VTE VTE Prophylaxis Ordered?: Yes Plan Plan Text 1. Diabetic ketoacidosis possibly secondary to viral respiratory infection The patient's anion gap has closed this morning The patient has been started on a diet IV insulin and IV fluids have been stopped The patient has been started back on her insulin pump We will continue to monitor her fingersticks 2. Depression. Continue Paxil. 3. Deep vein thrombosis (DVT) prophylaxis. The patient will be on Lovenox. 4. Acute kidney injury secondary to intravascular volume depletion from DKA Status post IV fluid hydration Serum creatinine has returned back to its baseline Subjective Review of Systems CC/HPI The patient is a 20-year-old female admitted with a reason for visit of Dka ( Diabetic Ketoacidoses). General: Reports: Fatigue, Malaise, Denies: Chills, Night Sweats Constitutional: Denies: Chills, Fever Eyes: Denies: Pain, Vision change ENT: Reports: Head Aches, Denies: Ear Pain Skin: Denies: Lesions, Rash Pulmonary: Reports: Cough, Denies: Dyspnea Cardiovascular: Denies: Chest Pain, Palpitations Gastrointestinal: Denies: Nausea, Vomiting Hematologic: Denies: Bleeding Excessively, Bruising Objective Physical Examination General Exam: Positive: Alert, Cooperative, No Acute Distress ENT Exam: Positive: Atraumatic, Mucous membr. moist/pink Chest Exam: Positive: Clear to auscultation, Normal air movement Heart Exam: Positive: Normal S1, Normal S2, Rate Normal Abdomen Exam: Positive: Soft, Negative: Tenderness Extremity Exam: Negative: Edema, Tenderness Vital Signs/I&O Vital Signs Date Time Temp Pulse Resp B/P Pulse Ox O2 Delivery O2 Flow Rate FiO2 04/01/16 12:00 99.1 98 18 115/56 99 Room Air I&O- Last 24 Hours up to 6 AM 04/01/16 06:00 Intake Total 1925 ml Output Total 1550 ml Balance 375 ml Laboratory Data Labs 24H Laboratory Tests 2 03/31/16 13:46: Bedside Glucose (Misc Panel) 471H 03/31/16 14:02: Anion Gap 29H, B-Hydroxybutyrate > 46.00H, White Blood Count 22.6H, Red Blood Count 4.98, Hemoglobin 15.4, Hematocrit 46.9, Mean Corpuscular Volume 94.2, Mean Corpuscular Hemoglobin 30.8, Mean Corpuscular Hemoglobin Concent 32.7, Red Cell Distribution Width 12.3, Platelet Count 346, Neutrophils (%) (Auto) 84.9H, Lymphocytes (%) (Auto) 9.5L, Monocytes (%) (Auto) 4.1, Eosinophils (%) (Auto) 0.4, Basophils (%) (Auto) 0.4, Neutrophils # (Auto) 19.2H, Lymphocytes # (Auto) 2.1, Monocytes # (Auto) 0.9H, Eosinophils # (Auto) 0.1, Basophils # (Auto) 0.1, Blood Urea Nitrogen 23H, Creatinine 1.46H, Sodium Level 133L, Potassium Level 5.9H, Chloride Level 97L, Carbon Dioxide Level 7L, Calcium Level 9.8, Estimated Mean Plasma Glucose 197H, Glomerular Filtration Rate 47.7L, Hemoglobin A1c 8.5H , Human Chorionic Gonadotropin, Qual NEGATIVE, Large Unclassified Cells # 0.2, Large Unclassified Cells % 0.7, Lipase 50L, Troponin I < 0.02 03/31/16 16:04: Arterial Blood pH 7.007*L, Arterial Blood Partial Pressure CO2 14.7*L, Arterial Blood Partial Pressure O2 123.4H, Arterial Blood Total CO2 4.1L, Arterial Blood HCO3 3.6L, Arterial Blood Base Excess -25.8L, Arterial Blood Oxygen Saturation 97.5, Blood Gas Bicarbonate Standard 7.1L, Oxygen Delivery Device NASAL ALIA 03/31/16 16:19: Bedside Glucose (Misc Panel) 534*H 03/31/16 16:55: Anion Gap 25H, Blood Urea Nitrogen 21H, Creatinine 1.27H, Sodium Level 137, Potassium Level 4.6#, Chloride Level 107, Carbon Dioxide Level 5L, Calcium Level 8.6, Glomerular Filtration Rate 56.0L, Magnesium Level 1.8, Phosphorus Level 4.9 03/31/16 18:16: Bedside Glucose (Misc Panel) 320H 03/31/16 18:31: Urine Amorphous Sediment , Urine Amphetamine Level NEGATIVE, Urine Benzodiazepines Screen NEGATIVE, Urine Cannabinoids NEGATIVE, Urine Cocaine Metabolite NEGATIVE, Urine Opiates Screen NEGATIVE, Urine Appearance HAZY, Urine Color STRAW, Urine pH 5.0, Urine Specific [place] 1.014, Urine Protein 1+H , Urine Glucose (UA) 3+H, Urine Ketones 2+H, Urine Urobilinogen 0.2, Urine Bilirubin NEGATIVE, Urine Leukocyte Esterase NEGATIVE, Urine Bacteria (Auto) 1+H , Urine Barbiturates, Qualitative NEGATIVE, Urine Blood 1+H, Urine Calcium Carbonate Cryst(Auto) , Urine Calcium Oxalate Cryst (Auto) , Urine Calcium Phosphate [place] (Auto) , Urine Cellular Casts , Urine Cystine Crystals , Urine Granular Casts (Auto) , Urine Hyaline Casts (Auto) 0, Urine Leucine Crystals , Urine Methadone Screen NEGATIVE, Urine Mucus (Auto) SMALL, Urine Nitrite NEGATIVE, Urine Oval Fat Bodies (Auto) , Urine RBC (Auto) 1, Urine Renal Epithelial Cells , Urine Sperm (Auto) , Urine Squamous Epithelial Cells 3, Urine Transitional Epithelial Cells , Urine Trichomonas (Auto) , Urine Tricyclic Antidepressants NEGATIVE, Urine Triple Phosphate Cryst (Auto) , Urine Tyrosine Crystals , Urine Uric Acid Crystals (Auto) , Urine WBC (Auto) 2, Urine Waxy Casts (Auto) , Urine Yeast-Like Cells (Auto) 03/31/16 18:42: Anion Gap 23H, Blood Urea Nitrogen 19H, Creatinine 1.25H, Sodium Level 138, Potassium Level 4.7, Chloride Level 109H, Carbon Dioxide Level 6L, Calcium Level 8.7, Glomerular Filtration Rate 57.1L 03/31/16 19:04: Bedside Glucose (Misc Panel) 332H 03/31/16 19:58: Bedside Glucose (Misc Panel) 250H 03/31/16 20:33: Anion Gap 17H, Blood Urea Nitrogen 17, Creatinine 1.23H, Sodium Level 138, Potassium Level 4.6, Chloride Level 110H, Carbon Dioxide Level 11L, Calcium Level 8.3L, Glomerular Filtration Rate 58.1L, Troponin I < 0.02 03/31/16 21:05: Bedside Glucose (Misc Panel) 222H 03/31/16 22:04: Bedside Glucose (Misc Panel) 216H 03/31/16 22:22: Anion Gap 17H, Blood Urea Nitrogen 16, Creatinine 1.17H, Sodium Level 139, Potassium Level 4.1, Chloride Level 112H, Carbon Dioxide Level 10L, Calcium Level 8.2L, Glomerular Filtration Rate > 60.0 03/31/16 23:03: Bedside Glucose (Misc Panel) 199H 04/01/16 00:07: Bedside Glucose (Misc Panel) 251H 04/01/16 00:27: Anion Gap 16, Blood Urea Nitrogen 15, Creatinine 1.07H, Sodium Level 136, Potassium Level 3.9, Chloride Level 109H, Carbon Dioxide Level 11L, Calcium Level 8.1L, Glomerular Filtration Rate > 60.0 04/01/16 01:08: Bedside Glucose (Misc Panel) 256H 04/01/16 02:03: Bedside Glucose (Misc Panel) 265H 04/01/16 02:39: Anion Gap 16, Blood Urea Nitrogen 15, Creatinine 1.12H, Sodium Level 138, Potassium Level 4.0, Chloride Level 109H, Carbon Dioxide Level 13L, Calcium Level 8.0L, Glomerular Filtration Rate > 60.0 04/01/16 03:08: Bedside Glucose (Misc Panel) 273H 04/01/16 04:13: Bedside Glucose (Misc Panel) 291H 04/01/16 04:26: Anion Gap 11, Blood Urea Nitrogen 14, Creatinine 1.08H, Sodium Level 136, Potassium Level 3.9, Chloride Level 109H, Carbon Dioxide Level 16L, Calcium Level 8.0L, Glomerular Filtration Rate > 60.0 04/01/16 05:11: Bedside Glucose (Misc Panel) 279H 04/01/16 06:10: Bedside Glucose (Misc Panel) 322H 04/01/16 06:44: Anion Gap 13, Blood Urea Nitrogen 13, Creatinine 1.06H, Sodium Level 136, Potassium Level 3.8, Chloride Level 108H, Carbon Dioxide Level 15L, Calcium Level 8.1L, Glomerular Filtration Rate > 60.0 04/01/16 07:02: Bedside Glucose (Misc Panel) 290H 04/01/16 07:46: Anion Gap 12, Blood Urea Nitrogen 13, Creatinine 0.99, Sodium Level 136, Potassium Level 3.9, Chloride Level 108H, Carbon Dioxide Level 16L, Calcium Level 8.1L, Glomerular Filtration Rate > 60.0 04/01/16 07:59: Bedside Glucose (Misc Panel) 256H 04/01/16 09:03: Bedside Glucose (Misc Panel) 300H 04/01/16 10:01: Anion Gap 11, Blood Urea Nitrogen 12, Creatinine 1.04H, Sodium Level 137, Potassium Level 3.7, Chloride Level 108H, Carbon Dioxide Level 18L, Calcium Level 8.2L, Glomerular Filtration Rate > 60.0 04/01/16 10:03: Bedside Glucose (Misc Panel) 285H 04/01/16 12:05: Anion Gap 11, Bedside Glucose (Misc Panel) 297H, Blood Urea Nitrogen 11, Creatinine 0.99, Sodium Level 136, Potassium Level 3.9, Chloride Level 107, Carbon Dioxide Level 18L, Calcium Level 8.3L, Glomerular Filtration Rate > 60.0 CBC/BMP Laboratory Tests 03/31/16 14:02 Calcium Level 9.8, Red Blood Count 4.98, Mean Corpuscular Volume 94.2, Mean Corpuscular Hemoglobin 30.8, Mean Corpuscular Hemoglobin Concent 32.7, Red Cell Distribution Width 12.3, Neutrophils (%) (Auto) 84.9 H, Lymphocytes (%) (Auto) 9.5 L, Monocytes (%) (Auto) 4.1, Eosinophils (%) (Auto) 0.4, Basophils (%) (Auto ) 0.4, Neutrophils # (Auto) 19.2 H, Lymphocytes # (Auto) 2.1, Monocytes # (Auto ) 0.9 H, Eosinophils # (Auto) 0.1, Basophils # (Auto) 0.1 03/31/16 16:55 Calcium Level 8.6 03/31/16 18:42 Calcium Level 8.7 03/31/16 20:33 Calcium Level 8.3 L 03/31/16 22:22 Calcium Level 8.2 L 04/01/16 00:27 Calcium Level 8.1 L 04/01/16 02:39 Calcium Level 8.0 L 04/01/16 04:26 Calcium Level 8.0 L 04/01/16 06:44 Calcium Level 8.1 L 04/01/16 07:46 Calcium Level 8.1 L 04/01/16 10:01 Calcium Level 8.2 L, Red Blood Count 4.19, Mean Corpuscular Volume 86.9 #, Mean Corpuscular Hemoglobin 30.0, Mean Corpuscular Hemoglobin Concent 34.5, Red Cell Distribution Width 13.5 04/01/16 12:05 Calcium Level 8.3 L FSBS Laboratory Tests Test 03/31/16 13:46 03/31/16 16:19 03/31/16 18:16 03/31/16 19:04 Range/Units Bedside Glucose (Misc Panel) 471 534 320 332 70-105 MG/DL Test 03/31/16 19:58 03/31/16 21:05 03/31/16 22:04 03/31/16 23:03 Range/Units Bedside Glucose (Misc Panel) 250 222 216 199 70-105 MG/DL Test 04/01/16 00:07 04/01/16 01:08 04/01/16 02:03 04/01/16 03:08 Range/Units Bedside Glucose (Misc Panel) 251 256 265 273 70-105 MG/DL Test 04/01/16 04:13 04/01/16 05:11 04/01/16 06:10 04/01/16 07:02 Range/Units Bedside Glucose (Misc Panel) 291 279 322 290 70-105 MG/DL Test 04/01/16 07:59 04/01/16 09:03 04/01/16 10:03 04/01/16 12:05 Range/Units Bedside Glucose (Misc Panel) 256 300 285 297 70-105 MG/DL Microbiology Microbiology 03/31/16 Blood Culture, Received Pending 03/31/16 Blood Culture, Received Pending 03/31/16 Respiratory Virus Panel (PCR) (RODY) - Final, Complete 03/31/16 MRSA Screen, Received Pending 03/31/16 Group A Streptococcus Screen (RODY), Received Pending 03/31/16 Influenza Virus Type A Antigen - Final, Complete 03/31/16 Influenza Virus Type B Antigen - Final, Complete 03/31/16 Urine Culture - Final, Complete JAGRUTI THOMAS MD Apr 01, 2016 13:29
[2016-04-01 14:35] LABS: ANION GAP 12 MEQ/L (8-16); BLOOD UREA NITROGEN 10 MG/DL (7-18); CALCIUM LEVEL 8.4 MG/DL (8.5-10.1); CARBON DIOXIDE LEVEL 17 MEQ/L (21-32); CHLORIDE LEVEL 108 MEQ/L (98-107); GLOMERULAR FILTRATION RATE > 60.0 (>60); GLUCOSE, FASTING 232 MG/DL (70-105); POTASSIUM SERUM 3.6 MEQ/L (3.5-5.1); SODIUM LEVEL 137 MEQ/L (136-145)
[2016-04-01] MEDS ORDERED: SLF 3 ML SYR IV PRN (15:00)
[2016-04-01 16:29] LABS: ANION GAP 14 MEQ/L (8-16); BLOOD UREA NITROGEN 9 MG/DL (7-18); CALCIUM LEVEL 8.8 MG/DL (8.5-10.1); CARBON DIOXIDE LEVEL 15 MEQ/L (21-32); CHLORIDE LEVEL 107 MEQ/L (98-107); CREATININE FOR GFR 1.01 MG/DL (0.55-1.02); GLOMERULAR FILTRATION RATE > 60.0 (>60); GLUCOSE, FASTING 256 MG/DL (70-105); POTASSIUM SERUM 3.9 MEQ/L (3.5-5.1); SODIUM LEVEL 136 MEQ/L (136-145)
[2016-04-01] MEDS: cefTRIAXone SOD 1 GM in D5W MINI-BAG PLUS 50 ML IV SCH (16:29)
[2016-04-01 18:40] LABS: ANION GAP 17 MEQ/L (8-16); BLOOD UREA NITROGEN 10 MG/DL (7-18); CALCIUM LEVEL 8.8 MG/DL (8.5-10.1); CARBON DIOXIDE LEVEL 14 MEQ/L (21-32); CHLORIDE LEVEL 104 MEQ/L (98-107); CREATININE FOR GFR 1.05 MG/DL (0.55-1.02); GLOMERULAR FILTRATION RATE > 60.0 (>60); GLUCOSE, FASTING 367 MG/DL (70-105); POTASSIUM SERUM 3.9 MEQ/L (3.5-5.1); SODIUM LEVEL 135 MEQ/L (136-145)
[2016-04-01] MEDS ORDERED: NS 1,000 ML IV SCH (18:51)
[2016-04-01] MEDS ORDERED: INSULIN HUMAN REGULAR 100 UNITS in NS 99 ML IV SCH (20:00)
[2016-04-01 20:33] LABS: ANION GAP 20 MEQ/L (8-16); BLOOD UREA NITROGEN 10 MG/DL (7-18); CALCIUM LEVEL 8.6 MG/DL (8.5-10.1); CARBON DIOXIDE LEVEL 12 MEQ/L (21-32); CHLORIDE LEVEL 104 MEQ/L (98-107); CREATININE FOR GFR 1.03 MG/DL (0.55-1.02); GLOMERULAR FILTRATION RATE > 60.0 (>60); GLUCOSE, FASTING 368 MG/DL (70-105); POTASSIUM SERUM 3.9 MEQ/L (3.5-5.1); SODIUM LEVEL 136 MEQ/L (136-145)
[2016-04-01] MEDS: SLF 3 ML SYR IV SCH (22:00)
[2016-04-01 22:46] LABS: ANION GAP 15 MEQ/L (8-16); BLOOD UREA NITROGEN 10 MG/DL (7-18); CALCIUM LEVEL 8.4 MG/DL (8.5-10.1); CARBON DIOXIDE LEVEL 16 MEQ/L (21-32); CHLORIDE LEVEL 106 MEQ/L (98-107); CREATININE FOR GFR 1.02 MG/DL (0.55-1.02); GLOMERULAR FILTRATION RATE > 60.0 (>60); GLUCOSE, FASTING 268 MG/DL (70-105); POTASSIUM SERUM 3.3 MEQ/L (3.5-5.1); SODIUM LEVEL 137 MEQ/L (136-145)
[2016-04-02] VITALS: BP 105/54
[2016-04-02 00:20] LABS: ANION GAP 13 MEQ/L (8-16); BLOOD UREA NITROGEN 10 MG/DL (7-18); CALCIUM LEVEL 8.4 MG/DL (8.5-10.1); CARBON DIOXIDE LEVEL 17 MEQ/L (21-32); CHLORIDE LEVEL 107 MEQ/L (98-107); CREATININE FOR GFR 0.95 MG/DL (0.55-1.02); GLOMERULAR FILTRATION RATE > 60.0 (>60); GLUCOSE, FASTING 225 MG/DL (70-105); POTASSIUM SERUM 3.3 MEQ/L (3.5-5.1); SODIUM LEVEL 137 MEQ/L (136-145)
[2016-04-02] MEDS: KCL 10MEQ IN 100ML SWI (KRUN) 10 MEQ in APPROPRIATE DILUENT 1 EA IV SCH ×6 (01:02→03:27)
[2016-04-02] MEDS: INSULIN IV RATE CHANGE DOCUMENTATION ML/HR XX SCH ×2 (02:13→04:20)
[2016-04-02 02:21] LABS: ANION GAP 20 MEQ/L (8-16); BLOOD UREA NITROGEN 9 MG/DL (7-18); CALCIUM LEVEL 8.2 MG/DL (8.5-10.1); CARBON DIOXIDE LEVEL 14 MEQ/L (21-32); CHLORIDE LEVEL 107 MEQ/L (98-107); CREATININE FOR GFR 0.95 MG/DL (0.55-1.02); GLOMERULAR FILTRATION RATE > 60.0 (>60); GLUCOSE, FASTING 201 MG/DL (70-105); POTASSIUM SERUM 3.5 MEQ/L (3.5-5.1); SODIUM LEVEL 141 MEQ/L (136-145)
[2016-04-02] MEDS: D5W/0.45% SODIUM CHLORIDE 1,000 ML IV SCH ×2 (02:30→08:11)
[2016-04-02 04:00] VITALS: BP 121/61
[2016-04-02 04:29] LABS: ANION GAP 14 MEQ/L (8-16); BLOOD UREA NITROGEN 8 MG/DL (7-18); CALCIUM LEVEL 8.2 MG/DL (8.5-10.1); CARBON DIOXIDE LEVEL 18 MEQ/L (21-32); CHLORIDE LEVEL 107 MEQ/L (98-107); CREATININE FOR GFR 0.94 MG/DL (0.55-1.02); GLOMERULAR FILTRATION RATE > 60.0 (>60); GLUCOSE, FASTING 195 MG/DL (70-105); POTASSIUM SERUM 3.9 MEQ/L (3.5-5.1); SODIUM LEVEL 139 MEQ/L (136-145)
[2016-04-02] MEDS: SLF 3 ML SYR IV SCH ×3 (05:02→21:08)
[2016-04-02 05:38] LABS: MEAN CORPUSCULAR HEMOGLOBIN 29.7 pg (27.0-33.0); MEAN CORPUSCULAR HGB CONC 34.8 g/dl (32.0-36.5); MEAN CORPUSCULAR VOLUME 85.4 fl (80.0-96.0); RED CELL DISTRIBUTION WIDTH 13.4 % (11.5-14.5); WHITE BLOOD COUNT 10.2 K/mm3 (4.0-10.0)
[2016-04-02 06:05] LABS: ANION GAP 13 MEQ/L (8-16); BLOOD UREA NITROGEN 8 MG/DL (7-18); CALCIUM LEVEL 8.2 MG/DL (8.5-10.1); CARBON DIOXIDE LEVEL 19 MEQ/L (21-32); CHLORIDE LEVEL 106 MEQ/L (98-107); CREATININE FOR GFR 0.94 MG/DL (0.55-1.02); GLOMERULAR FILTRATION RATE > 60.0 (>60); GLUCOSE, FASTING 210 MG/DL (70-105); MAGNESIUM LEVEL 1.7 MG/DL (1.8-2.4); POTASSIUM SERUM 3.9 MEQ/L (3.5-5.1); SODIUM LEVEL 138 MEQ/L (136-145)
[2016-04-02 07:57] VITALS: BP 120/58
[2016-04-02 08:35] LABS: ANION GAP 11 MEQ/L (8-16); BLOOD UREA NITROGEN 8 MG/DL (7-18); CALCIUM LEVEL 8.2 MG/DL (8.5-10.1); CARBON DIOXIDE LEVEL 22 MEQ/L (21-32); CHLORIDE LEVEL 107 MEQ/L (98-107); GLOMERULAR FILTRATION RATE > 60.0 (>60); GLUCOSE, FASTING 220 MG/DL (70-105); POTASSIUM SERUM 3.7 MEQ/L (3.5-5.1); SODIUM LEVEL 140 MEQ/L (136-145)
[2016-04-02] MEDS: PARoxetine 10MG TABLET PO SCH (09:10)
[2016-04-02] MEDS: PANTOPRAZOLE 40MG INJ (PROTONIX) (C9113) IV SCH (09:11)
[2016-04-02] MEDS: ENOXAPARIN 40 MG/0.4 ML SYRINGE (J1650) SC SCH (09:11)
[2016-04-02 10:30] LABS: ANION GAP 13 MEQ/L (8-16); BLOOD UREA NITROGEN 7 MG/DL (7-18); CARBON DIOXIDE LEVEL 21 MEQ/L (21-32); CHLORIDE LEVEL 105 MEQ/L (98-107); CREATININE FOR GFR 0.85 MG/DL (0.55-1.02); GLOMERULAR FILTRATION RATE > 60.0 (>60); GLUCOSE, FASTING 206 MG/DL (70-105); POTASSIUM SERUM 3.4 MEQ/L (3.5-5.1); SODIUM LEVEL 139 MEQ/L (136-145)
[2016-04-02] MEDS ORDERED: POTASSIUM CHLORIDE 10 MEQ SR TABLET PO ONE ×3 (11:00→21:30)
[2016-04-02 12:27] VITALS: BP 122/73
[2016-04-02 12:53] LABS: ANION GAP 14 MEQ/L (8-16); BLOOD UREA NITROGEN 6 MG/DL (7-18); CALCIUM LEVEL 8.7 MG/DL (8.5-10.1); CARBON DIOXIDE LEVEL 20 MEQ/L (21-32); CHLORIDE LEVEL 106 MEQ/L (98-107); CREATININE FOR GFR 0.82 MG/DL (0.55-1.02); GLOMERULAR FILTRATION RATE > 60.0 (>60); GLUCOSE, FASTING 191 MG/DL (70-105); POTASSIUM SERUM 3.7 MEQ/L (3.5-5.1); SODIUM LEVEL 140 MEQ/L (136-145)
[2016-04-02] MEDS ORDERED: MAG SULF 1GM/100ML (MAG RUN) 1 GM in APPROPRIATE DILUENT 1 EA IV ONE (14:00)
[2016-04-02 14:50] LABS: ANION GAP 11 MEQ/L (8-16); BLOOD UREA NITROGEN 6 MG/DL (7-18); CALCIUM LEVEL 8.6 MG/DL (8.5-10.1); CARBON DIOXIDE LEVEL 23 MEQ/L (21-32); CHLORIDE LEVEL 108 MEQ/L (98-107); CREATININE FOR GFR 0.82 MG/DL (0.55-1.02); GLOMERULAR FILTRATION RATE > 60.0 (>60); GLUCOSE, FASTING 167 MG/DL (70-105); POTASSIUM SERUM 3.4 MEQ/L (3.5-5.1); SODIUM LEVEL 142 MEQ/L (136-145)
--- NOTE | 2016-04-02 15:01 | IPNPDOC ---
Assessment/Plan Date Seen The patient was seen on 04/02/16. Plan / VTE VTE Prophylaxis Ordered?: Yes Plan Plan Text 1. Diabetic ketoacidosis possibly secondary to viral respiratory infection The patient's anion gap has closed The patient has been tolerating a diet IV insulin and IV fluids have been stopped Continue insulin pump We will continue to monitor her fingersticks 2. Depression. Continue Paxil. 3. Deep vein thrombosis (DVT) prophylaxis. Lovenox. 4. Acute kidney injury secondary to intravascular volume depletion from DKA Status post IV fluid hydration Serum creatinine has returned back to its baseline Disposition-if the patient's glucose levels remain stable, we will anticipate discharge in the next 24 hours. Subjective Review of Systems CC/HPI The patient is a 20-year-old female admitted with a reason for visit of Dka ( Diabetic Ketoacidoses). General: Denies: Chills, Night Sweats Constitutional: Denies: Chills, Fever Eyes: Denies: Pain, Vision change ENT: Denies: Ear Pain, Head Aches Skin: Denies: Lesions, Rash Pulmonary: Denies: Cough, Dyspnea Cardiovascular: Denies: Chest Pain, Palpitations Gastrointestinal: Denies: Abdominal Pain, Nausea, Vomiting Hematologic: Denies: Bleeding Excessively, Bruising Musculoskeletal: Denies: Back Pain, Neck Pain Objective Physical Examination General Exam: Positive: Alert, Cooperative, No Acute Distress ENT Exam: Positive: Atraumatic, Mucous membr. moist/pink Chest Exam: Positive: Clear to auscultation, Normal air movement Heart Exam: Positive: Normal S1, Normal S2, Rate Normal Abdomen Exam: Positive: Soft, Negative: Tenderness Extremity Exam: Negative: Edema, Tenderness Vital Signs/I&O Vital Signs Date Time Temp Pulse Resp B/P Pulse Ox O2 Delivery O2 Flow Rate FiO2 04/02/16 07:57 98.3 84 18 120/58 97 Room Air I&O- Last 24 Hours up to 6 AM 04/02/16 06:00 Intake Total 1865 ml Output Total 1550 ml Balance 315 ml Laboratory Data Labs 24H Laboratory Tests 2 04/01/16 16:01: Anion Gap 14, Blood Urea Nitrogen 9, Creatinine 1.01, Sodium Level 136, Potassium Level 3.9, Chloride Level 107, Carbon Dioxide Level 15L, Calcium Level 8.8, Glomerular Filtration Rate > 60.0 04/01/16 16:05: Bedside Glucose (Misc Panel) 236H 04/01/16 18:07: Anion Gap 17H, Blood Urea Nitrogen 10, Creatinine 1.05H, Sodium Level 135L, Potassium Level 3.9, Chloride Level 104, Carbon Dioxide Level 14L, Calcium Level 8.8, Glomerular Filtration Rate > 60.0, Bedside Glucose (Misc Panel) 355H 04/01/16 19:22: Bedside Glucose (Misc Panel) 368H 04/01/16 19:58: Anion Gap 20H, Blood Urea Nitrogen 10, Creatinine 1.03H, Sodium Level 136, Potassium Level 3.9, Chloride Level 104, Carbon Dioxide Level 12L, Calcium Level 8.6, Glomerular Filtration Rate > 60.0 04/01/16 21:14: Bedside Glucose (Misc Panel) 308H 04/01/16 22:06: Anion Gap 15, Blood Urea Nitrogen 10, Creatinine 1.02, Sodium Level 137, Potassium Level 3.3L, Chloride Level 106, Carbon Dioxide Level 16L, Calcium Level 8.4L, Glomerular Filtration Rate > 60.0 04/01/16 22:07: Bedside Glucose (Misc Panel) 259H 04/01/16 23:02: Bedside Glucose (Misc Panel) 226H 04/01/16 23:35: Anion Gap 13, Blood Urea Nitrogen 10, Creatinine 0.95, Sodium Level 137, Potassium Level 3.3L, Chloride Level 107, Carbon Dioxide Level 17L, Calcium Level 8.4L, Glomerular Filtration Rate > 60.0 04/02/16 00:00: Bedside Glucose (Misc Panel) 206H 04/02/16 01:06: Bedside Glucose (Misc Panel) 220H 04/02/16 01:40: Anion Gap 20H, Blood Urea Nitrogen 9, Creatinine 0.95, Sodium Level 141, Potassium Level 3.5, Chloride Level 107, Carbon Dioxide Level 14L, Calcium Level 8.2L, Glomerular Filtration Rate > 60.0 04/02/16 02:06: Bedside Glucose (Misc Panel) 166H 04/02/16 03:04: Bedside Glucose (Misc Panel) 167H 04/02/16 03:48: Anion Gap 14, Blood Urea Nitrogen 8, Creatinine 0.94, Sodium Level 139, Potassium Level 3.9, Chloride Level 107, Carbon Dioxide Level 18L, Calcium Level 8.2L, Glomerular Filtration Rate > 60.0 04/02/16 04:19: Bedside Glucose (Misc Panel) 203H 04/02/16 04:55: Bedside Glucose (Misc Panel) 203H 04/02/16 05:25: Anion Gap 13, Blood Urea Nitrogen 8, Creatinine 0.94, Sodium Level 138, Potassium Level 3.9, Chloride Level 106, Carbon Dioxide Level 19L, Calcium Level 8.2L, Glomerular Filtration Rate > 60.0, Magnesium Level 1.7L 04/02/16 06:14: Bedside Glucose (Misc Panel) 205H 04/02/16 06:57: Bedside Glucose (Misc Panel) 204H 04/02/16 07:56: Bedside Glucose (Misc Panel) 215H 04/02/16 07:57: Anion Gap 11, Blood Urea Nitrogen 8, Creatinine 0.90, Sodium Level 140, Potassium Level 3.7, Chloride Level 107, Carbon Dioxide Level 22, Calcium Level 8.2L, Glomerular Filtration Rate > 60.0 04/02/16 09:07: Bedside Glucose (Misc Panel) 231H 04/02/16 09:58: Bedside Glucose (Misc Panel) 216H 04/02/16 10:01: Anion Gap 13, Blood Urea Nitrogen 7, Creatinine 0.85, Sodium Level 139, Potassium Level 3.4L, Chloride Level 105, Carbon Dioxide Level 21, Calcium Level 8.0L, Glomerular Filtration Rate > 60.0 04/02/16 11:04: Bedside Glucose (Misc Panel) 185H 04/02/16 11:59: Anion Gap 14, Blood Urea Nitrogen 6L, Creatinine 0.82, Sodium Level 140, Potassium Level 3.7, Chloride Level 106, Carbon Dioxide Level 20L, Calcium Level 8.7, Glomerular Filtration Rate > 60.0 04/02/16 14:25: Anion Gap 11, Blood Urea Nitrogen 6L, Creatinine 0.82, Sodium Level 142, Potassium Level 3.4L, Chloride Level 108H, Carbon Dioxide Level 23, Calcium Level 8.6, Glomerular Filtration Rate > 60.0 CBC/BMP Laboratory Tests 04/01/16 16:01 Calcium Level 8.8 04/01/16 18:07 Calcium Level 8.8 04/01/16 19:58 Calcium Level 8.6 04/01/16 22:06 Calcium Level 8.4 L 04/01/16 23:35 Calcium Level 8.4 L 04/02/16 01:40 Calcium Level 8.2 L 04/02/16 03:48 Calcium Level 8.2 L 04/02/16 05:25 Calcium Level 8.2 L, Red Blood Count 3.96 L, Mean Corpuscular Volume 85.4, Mean Corpuscular Hemoglobin 29.7, Mean Corpuscular Hemoglobin Concent 34.8, Red Cell Distribution Width 13.4 04/02/16 07:57 Calcium Level 8.2 L 04/02/16 10:01 Calcium Level 8.0 L 04/02/16 11:59 Calcium Level 8.7 04/02/16 14:25 Calcium Level 8.6 FSBS Laboratory Tests Test 04/01/16 16:05 04/01/16 18:07 04/01/16 19:22 04/01/16 21:14 Range/Units Bedside Glucose (Misc Panel) 236 355 368 308 70-105 MG/DL Test 04/01/16 22:07 04/01/16 23:02 04/02/16 00:00 04/02/16 01:06 Range/Units Bedside Glucose (Misc Panel) 259 226 206 220 70-105 MG/DL Test 04/02/16 02:06 04/02/16 03:04 04/02/16 04:19 04/02/16 04:55 Range/Units Bedside Glucose (Misc Panel) 166 167 203 203 70-105 MG/DL Test 04/02/16 06:14 04/02/16 06:57 04/02/16 07:56 04/02/16 09:07 Range/Units Bedside Glucose (Misc Panel) 205 204 215 231 70-105 MG/DL Test 04/02/16 09:58 04/02/16 11:04 Range/Units Bedside Glucose (Misc Panel) 216 185 70-105 MG/DL Microbiology Microbiology 03/31/16 Blood Culture - Preliminary, Resulted No growth after 24 hours . All specim... 03/31/16 Blood Culture - Preliminary, Resulted No growth after 24 hours . All specim... 03/31/16 Respiratory Virus Panel (PCR) (RODY) - Final, Complete 03/31/16 MRSA Screen - Final, Complete Staph.aureus Methicillin Resis 03/31/16 Group A Streptococcus Screen (RODY) - Final, Complete Streptococcus Group C 03/31/16 Influenza Virus Type A Antigen - Final, Complete 03/31/16 Influenza Virus Type B Antigen - Final, Complete 03/31/16 Urine Culture - Final, Complete JAGRUTI THOMAS MD Apr 02, 2016 15:01
--- NOTE | 2016-04-02 18:19 | EDDOCDS ---
Physician Documentation [facility] Name: Luz Rizvi Age: 20 yrs Sex: Female : 1995 Arrival Date: 03/31/2016 Time: 11:41 Bed 1 Private MD: Farzana - Complete Info On Cds Disposition: 03/31 15:38 Critical Care:. le Disposition: 03/31/16 15:37 Hospitalization ordered by Matias Alvarado for Observation. 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 - Bed requested for M ICU. - Status is Observation. ck1 - Condition is Stable. - Problem is an acute exacerbation. - Symptoms are unchanged. Historical: - Allergies: Tramadol HCl; - Home Meds: 1. Ambien 10 mg Oral tab 1 tab once daily 2. Paxil 10 mg Oral tab 1 tab once daily 3. Maegan 14 mcg/24 hour (3 years) intrauterine IUD 4. insulin novolog insulin pump - PMHx: Depression; Diabetes - IDDM: uncontrolled; - PSHx: Right ulnar neuropathy repair; Tonsillectomy; - Social history: Smoking status: Patient states former smoker of tobacco. No barriers to communication noted, The patient speaks fluent Mongolian, Speaks appropriately for age. - Family history: Not pertinent. - : The pt / caregiver states he / she is not on anticoagulants. Home medication list is obtained from the patient. - Exposure Risk Screening:: None identified. 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 4 in. (162.56 cm); 13:53 BP 121 / 60 (auto/); ck1 13:53 Pulse 85 MON; Pulse Ox 96% ; ck1 14:45 BP 120 / 70; Pulse 119; Resp 24; Temp 98.4(O); Pulse Ox 99% ; mb9 15:18 BP 138 / 60 (auto/); ck1 15:19 Pulse 115 MON; Pulse Ox 100% ; ck1 15:48 BP 138 / 61 (auto/); ck1 15:49 Pulse 119 MON; Pulse Ox 100% ; ck1 16:00 BP 142 / 63 (auto/); ck1 16:00 Pulse 119 MON; Pulse Ox 100% ; ck1 16:15 BP 128 / 76 (auto/); ck1 16:16 Pulse 146 MON; Pulse Ox 75% ; ck1 16:30 BP 145 / 67 (auto/); ck1 16:31 Pulse 123 MON; Pulse Ox 100% ; ck1 16:45 BP 126 / 57 (auto/); ck1 16:46 Pulse 119 MON; Pulse Ox 100% ; ck1 17:00 BP 119 / 55 (auto/); ck1 17:01 Pulse 121 MON; Pulse Ox 100% ; ck1 17:17 BP 99 / 55; Pulse 120; Resp 18; Temp 98.4(T); Pulse Ox 99% on R/A; Pain 0/10; ck1 11:42 Body Mass Index 28.49 (75.30 kg, 162.56 cm) elp MDM: 13:42 Strep Screen, Nursing ordered. le 13:42 IV Saline Lock ordered. le 13:42 Accucheck ordered. le 13:42 NS 0.9% 1000 ml IV at bolus once ordered. le 13:43 -Influenza A&B Rapid Antigen - Nose Ordered. EDMS 13:43 CBC with Diff Ordered. EDMS 13:43 BMP Ordered. EDMS 13:43 Financial registration complete. mm15 13:48 Ondansetron 4 mg IVP once ordered. le 13:50 [facility] Payment Agreement was scanned into [employer] and attached to record. mm15 14:01 Fingerstick Blood Sugar Reviewed. le 14:16 ACETONE/KETONE Ordered. EDMS 14:50 Call Respiratory ordered. le 14:50 NS 0.9% 1000 ml IV at bolus once ordered. le 14:50 Insulin Regular Human 7.5 units IVP once ordered. le 14:50 -Arterial Blood Gas Ordered. EDMS 15:00 Call Respiratory complete. lbd 15:08 Insulin Regular Human 8 units IVP once ordered. mb9 15:08 GATS (NEGATIVE STREP SCREEN) Ordered. EDMS 15:13 CBC with Diff Reviewed. le 15:13 BMP Reviewed. le 15:13 ACETONE/KETONE Reviewed. le 15:13 -Influenza A&B Rapid Antigen - Nose Reviewed. le 15:15 Insulin Regular Human Infusion (0.1units/kg/hr) 0.1 units/kg/hr IV at calculated rate le Per protocol; 7 units/hr ordered. 15:15 Accucheck hourly ordered. le 15:15 BED REQUEST+ADM ordered. EDMS 15:21 Chest, 1 View Ordered. EDMS 15:22 ECG WITH READING ER PHYS+CARDIAG ordered. EDMS 15:45 TROPONIN Ordered. EDMS 15:45 URINALYSIS Ordered. EDMS 15:45 URINE CULTURE Ordered. EDMS 15:45 BLOOD CULTURES Ordered. EDMS 15:45 BLOOD CULTURES Ordered. EDMS 15:56 -Arterial Blood Gas Ordered. EDMS 16:17 -Arterial Blood Gas Reviewed. le 16:17 CBC with Diff Reviewed. le 16:17 BMP Reviewed. le 16:17 ACETONE/KETONE Reviewed. le 16:17 LIPASE Reviewed. le 16:17 TROPONIN Reviewed. le 16:28 Fingerstick Blood Sugar Ordered. EDMS 16:38 DRUG EVAL TOXICOLOGY ED ONLY Ordered. EDMS 16:38 HCG, QUALITATIVE Ordered. EDMS 16:41 Admission / Observation Status ordered. EDMS 16:41 NPO DIET ordered. EDMS 16:41 HEMOGLOBIN A1C Ordered. EDMS 16:42 MAGNESIUM LEVEL Ordered. EDMS 16:42 BASIC METABOLIC PROFILE Ordered. EDMS 16:42 BASIC METABOLIC PROFILE Ordered. EDMS 16:42 BASIC METABOLIC PROFILE Ordered. EDMS 16:42 BASIC METABOLIC PROFILE Ordered. EDMS 16:42 PHOSPHOROUS LEVEL Ordered. EDMS 16:43 RESPIRATORY PANEL Ordered. EDMS 16:50 DRUG EVAL TOXICOLOGY ED ONLY Ordered. EDMS 04/01 10:59 T-Sheet-- Draft Copy was scanned into [employer] and attached to record. gb 10:59 ECG/EKG was scanned into [employer] and attached to record. gb Point of Care Testing: Blood Glucose: 03/31 13:46 Blood Glucose: 471 mg/dL; mb9 14:51 Blood Glucose: High; mb9 13:46 Izabela Alexa aware mb9 14:51 Izabela Alexa aware. No order recieved to draw glucomconfirm. mb9 Ranges: Administered Medications: 14:19 Drug: Ondansetron 4 mg [ondansetron HCl 2 mg/mL intravenous solution (2 mL)] Route: mb9 IVP; Site: right antecubital; 14:44 Follow up: Response: Nausea is unchanged mb9 14:20 Drug: NS 0.9% 1000 ml [sodium chloride 0.9 % intravenous solution] Route: IV; Rate: mb9 bolus; Site: right antecubital; 14:44 Follow up: IV Intake: 1000ml mb9 15:08 Drug: NS 0.9% 1000 ml [sodium chloride 0.9 % intravenous solution] Route: IV; Rate: mb9 bolus; Site: left antecubital; 15:50 Follow up: IV Status: Completed infusion ck1 15:08 Not Given (Other Intervention Used): Insulin Regular Human 7.5 units IVP once mb9 15:09 Drug: Insulin Regular Human 8 units [insulin regular human 100 unit/mL injection mb9 solution (0.08 mL)] {Co-Signature: kpj (Bertha Banda RN).} Route: IVP; Site: right antecubital; 15:27 Drug: Insulin Regular Human Infusion (0.1units/kg/hr) 7.53 units/hr [insulin regular mb9 human 100 unit/mL injection solution] {Co-Signature: ck1 (Olamide Gunderson RN).} Route: IV; Rate: calculated rate; Site: left antecubital; 17:16 Follow up: IV Status: Infusion continued upon admit ck1 Critical Care Time: 15:38 Critical care time: Bedside Care: 20 minutes, Consultation: 10 minutes. Total time: 30 le minutes Signatures: Dispatcher [employer] Renetta Flores, Processor [employer] lbd Aby Yancey, Reg Reg Fabio Nunez RN RN mlb1 Olamide Gunderson RN RN ck1 Izabela Hernandes, SUPERVISOR MAJOR APPLIANCE ASSEMBLY SUPERVISOR MAJOR APPLIANCE ASSEMBLY Francoise Perez mm15 Fabio Aldrich RN RN mb9 Casey Cannon RN RN [facility] Bertha Banda RN kpj Olamide Gunderson RN ck1 The chart was reviewed and I authenticate all verbal orders and agree with the evaluation and treatment provided.Corrections: (The following items were deleted from the chart) 14:16 13:50 ACETONE/KETONE+LAB ordered. EDMS EDMS 14:51 14:21 VENOUS BLOOD GAS+LAB ordered. EDMS EDMS 15:53 15:45 LIPASE ordered. EDMS EDMS 15:53 15:45 TROPONIN ordered. EDMS EDMS 16:41 15:52 CONSISTENT CARBOHYDRATE+DIET ordered. EDMS EDMS Attachments: 13:50 [facility] Payment Agreement mm15 04/01 10:59 T-Sheet-- Draft Copy gb 10:59 ECG/EKG gb Chart Complete MTDD
--- NOTE | 2016-04-02 18:19 | EDDOCDS ---
Nurse's Notes [facility] Name: Luz Rizvi Age: 20 yrs Sex: Female : 1995 Arrival Date: 03/31/2016 Time: 11:41 Bed 1 Private MD: Farzana - Complete Info On Cds Diagnosis: Diabetes mellitus due to underlying condition with ketoacidosis without coma Presentation: 03/31 11:47 Presenting complaint: Patient states: Flu like symptoms began last evening, body aches mlb1 N/V. Adult Sepsis Screening: The patient does not have new or worsening altered mentation. Patient's respiratory rate is less than 22. Systolic blood pressure is greater than 100. Patient has a qSOFA score of 0- Negative Sepsis Screen. Suicide/Homicide risk assessment- the patient denies having any suicidal and/or homicidal ideations and does not present with any other emotional, behavioral or mental health complaints. Transition of care: patient was not received from another setting of care. 11:47 Acuity: STEVIE Level 4 mlb1 11:47 Method Of Arrival: Walkin/Carried/Asstd mlb1 11:57 Status: The patient is a dependent. mlb1 14:14 Acuity level changed due to complexity of care. mb9 14:14 Acuity: STEVIE Level 3 mb9 Triage Assessment: 11:59 General: Appears distressed, Behavior is appropriate for age, cooperative. Pain: mlb1 Location: "all over" Pain currently is 8 out of 10 on a pain scale. HIV screening NA for this visit Offered previously. 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 Ambien 10 mg Oral tab 1 tab once daily 2. Paxil 10 mg Oral tab 1 tab once daily 3. Maegan 14 mcg/24 hour (3 years) intrauterine IUD 4. insulin novolog insulin pump - PMHx: Depression; Diabetes - IDDM: uncontrolled; - PSHx: Right ulnar neuropathy repair; Tonsillectomy; - Social history: Smoking status: Patient states former smoker of tobacco. No barriers to communication noted, The patient speaks fluent [place] Helen[place], Speaks appropriately for age. - Family history: Not pertinent. - : The pt / caregiver states he / she is not on anticoagulants. Home medication list is obtained from the patient. - Exposure Risk Screening:: None identified. Screenin:28 Screening information is obtained from the patient. Fall risk: No risks identified. ck1 Assistance ADL's: requires no assistance with activities of daily living. Abuse/DV Screen: The patient / caregiver reports he/she is: not in a situation that causes fear, pain or injury. Nutritional screening: No deficits noted. Advance Directives: Currently, there is no health care proxy. home support is adequate. Assessment: 14:16 General: Appears uncomfortable, Behavior is appropriate for age, cooperative. Pain: mb9 Denies pain. Neurological: Level of Consciousness is awake, alert, Oriented to person, place, time. Respiratory: Airway is patent Respiratory effort is even, Respiratory pattern is Kussmaul Breath sounds are clear bilaterally. GI: Reports nausea, vomiting. 15:28 General: Appears ill, Behavior is. Pain: Denies pain. Neurological: Level of ck1 Consciousness is awake, alert, Oriented to person, place, time. Respiratory: Respiratory effort is unlabored, Respiratory pattern is regular, symmetrical. GI: Reports nausea, vomiting. Derm: Skin is pale. Musculoskeletal: No deficits noted. 16:23 General: Appears ill, Behavior is appropriate for age, cooperative. Neurological: Level ck1 of Consciousness is awake, alert, obeys commands, Oriented to person, place, time. Cardiovascular: Rhythm is sinus tachycardia Chest pain is denied. Respiratory: Respiratory effort is unlabored, Respiratory pattern is regular, symmetrical. GI: other tolerating PO fluids without difficulty. Derm: Skin is pale. 17:17 Reassessment: Patient appears in no apparent distress at this time. Patient denies pain ck1 at this time. Respiratory: Respiratory effort is unlabored, Respiratory pattern is regular, symmetrical. GI: Reports tolerance of fluids. Derm: Skin is pale. Musculoskeletal: No deficits noted. Vital Signs: 11:42 BP 137 / 63; Pulse 106; Resp 18; Temp 96.5; Pulse Ox 99% ; Weight 75.3 kg; Height 5 ft. elp 4 in. (162.56 cm); 13:53 BP 121 / 60 (auto/); ck1 13:53 Pulse 85 MON; Pulse Ox 96% ; ck1 14:45 BP 120 / 70; Pulse 119; Resp 24; Temp 98.4(O); Pulse Ox 99% ; mb9 15:18 BP 138 / 60 (auto/); ck1 15:19 Pulse 115 MON; Pulse Ox 100% ; ck1 15:48 BP 138 / 61 (auto/); ck1 15:49 Pulse 119 MON; Pulse Ox 100% ; ck1 16:00 BP 142 / 63 (auto/); ck1 16:00 Pulse 119 MON; Pulse Ox 100% ; ck1 16:15 BP 128 / 76 (auto/); ck1 16:16 Pulse 146 MON; Pulse Ox 75% ; ck1 16:30 BP 145 / 67 (auto/); ck1 16:31 Pulse 123 MON; Pulse Ox 100% ; ck1 16:45 BP 126 / 57 (auto/); ck1 16:46 Pulse 119 MON; Pulse Ox 100% ; ck1 17:00 BP 119 / 55 (auto/); ck1 17:01 Pulse 121 MON; Pulse Ox 100% ; ck1 17:17 BP 99 / 55; Pulse 120; Resp 18; Temp 98.4(T); Pulse Ox 99% on R/A; Pain 0/10; ck1 11:42 Body Mass Index 28.49 (75.30 kg, 162.56 cm) elp Vitals: 11:42 Log In Time: March 31, 2016 at 11:40. elp 15:14 Strep Screen is obtained and tested: Negative, a GATSNEG [facility] and sent. ED Course: 11:42 Patient visited by Vanessa Lyons PCA. elp 11:42 Other - Complete Info On Cds is Private Physician. elp 11:42 Patient moved to Waiting elp 11:43 Patient visited by Vanessa Lyons PCA. elp 11:43 Patient moved to Pre RCE elp 11:47 Patient visited by Fabio Menendez, REMBERTO. mlb1 11:50 Triage Initiated mlb1 12:00 Patient visited by Fabio Menendez, REMBERTO. mlb1 13:14 [facility]abel[facility]andes FNP [facility] le 13:14 Patient moved to 31 mcp 13:26 Patient visited by Izabela Hernandes FNP. le 13:26 Patient visited by Izabela Hernandes FNP. le 13:50 [facility] Payment Agreement was scanned into [employer] and attached to record. mm15 13:53 Patient name changed from Luz\\S\\\\S\\Dmitri\\S\\ to Luz\\S\\ \\S\\Dmitri. EDMS 14:17 Inserted saline lock: 18 gauge in right antecubital area and blood collected. The mb9 patient tolerated the procedure well. 14:19 Patient visited by Fabio Aldrich RN. mb9 14:19 ACETONE/KETONE Sent. mb9 14:59 Patient moved to 1 [facility] 15:12 Patient visited by Olamide Gunderson RN. ck1 15:16 GATS (NEGATIVE STREP SCREEN) Sent. ck1 15:26 Patient visited by Olamide Gunderson RN. ck1 15:26 Inserted saline lock: 20 gauge in left antecubital area The patient tolerated the ck1 procedure well. 15:28 The patient / caregiver is instructed regarding the plan of care and ED course. ck1 15:37 Matias Alvarado is Hospitalizing Provider. le 15:37 EKG done. (by ED staff). Reviewed by Izabela MELENDEZ. jrd 16:06 -Arterial Blood Gas Sent. cs15 16:23 PO fluids given. Pillow given. ck1 16:24 No procedures done that require assistance. ck1 17:13 Chest, 1 View Returned. EDMS 04/01 10:59 T-Sheet-- Draft Copy was scanned into [employer] and attached to record. 10:59 ECG/EKG was scanned into [employer] and attached to record. gb Administered Medications: 03/31 14:19 Drug: Ondansetron 4 mg [ondansetron HCl 2 mg/mL intravenous solution (2 mL)] Route: mb9 IVP; Site: right antecubital; 14:44 Follow up: Response: Nausea is unchanged mb9 14:20 Drug: NS 0.9% 1000 ml [sodium chloride 0.9 % intravenous solution] Route: IV; Rate: mb9 bolus; Site: right antecubital; 14:44 Follow up: IV Intake: 1000ml mb9 15:08 Drug: NS 0.9% 1000 ml [sodium chloride 0.9 % intravenous solution] Route: IV; Rate: mb9 bolus; Site: left antecubital; 15:50 Follow up: IV Status: Completed infusion ck1 15:08 Not Given (Other Intervention Used): Insulin Regular Human 7.5 units IVP once mb9 15:09 Drug: Insulin Regular Human 8 units [insulin regular human 100 unit/mL injection mb9 solution (0.08 mL)] {Co-Signature: kpj (Bertha Banda RN).} Route: IVP; Site: right antecubital; 15:27 Drug: Insulin Regular Human Infusion (0.1units/kg/hr) 7.53 units/hr [insulin regular mb9 human 100 unit/mL injection solution] {Co-Signature: ck1 (Olamide Gunderson RN).} Route: IV; Rate: calculated rate; Site: left antecubital; 17:16 Follow up: IV Status: Infusion continued upon admit ck1 Point of Care Testing: Blood Glucose: 13:46 Blood Glucose: 471 mg/dL; mb9 14:51 Blood Glucose: High; mb9 13:46 Izabela Alexa aware mb9 14:51 Izabela Alexa aware. No order recieved to draw glucomconfirm. mb9 Ranges: Intake: 14:44 IV: 1000.00ml; Total: 1000.00ml. mb9 RT: 16:06 ABG's drawn from left radial artery allens test done and positive pressure held for 5 cs15 minutes no bleeding noted pressure bandage applied specimen sent pt. tolerated well. Oxygen is room air. Respiratory: Respiratory pattern is Kussmaul. Order Results: Lab Order: -Influenza A&B Rapid Antigen - Nose; SPEC'M 03/31/16 14:02 Test: INFLUENZA A RAPID SCR by ICA; Value: INFLUENZA A RESULTS NEGATIVE; Status: F Test: INFLUENZA A RAPID SCR by ICA; Value: Comments:; Status: F Test: INFLUENZA B RAPID SCR by ICA; Value: INFLUENZA B RESULTS NEGATIVE; Status: F Test Note: ; The Influenza test is a direct rapid immunoassay for the qualitative detection of Influenza viral antigen. Cell culture (Viral Culture) testing should be considered to confirm NEGATIVE results and to assist in detecting other viruses that can provide similar clinical symptoms. Please contact the lab within 24 hours ([phone]) if confirmatory testing is desired. Lab Order: CBC with Diff; SPEC'M 03/31/16 14:02 Test: WHITE BLOOD COUNT; Value: 22.6; Range: 4.0-10.0; Abnormal: Above high normal; Units: K/mm3; Status: F Test: RED BLOOD COUNT; Value: 4.98; Range: 4.00-5.40; Units: M/mm3; Status: F Test: HEMOGLOBIN; Value: 15.4; Range: 12.0-16.0; Units: g/dl; Status: F Test: HEMATOCRIT; Value: 46.9; Range: 36.0-47.0; Units: %; Status: F Test: MEAN CORPUSCULAR VOLUME; Value: 94.2; Range: 80.0-96.0; Units: fl; Status: F Test: MEAN CORPUSCULAR HEMOGLOBIN; Value: 30.8; Range: 27.0-33.0; Units: pg; Status: F Test: MEAN CORPUSCULAR HGB CONC; Value: 32.7; Range: 32.0-36.5; Units: g/dl; Status: F Test: RED CELL DISTRIBUTION WIDTH; Value: 12.3; Range: 11.5-14.5; Units: %; Status: F Test: PLATELET COUNT, AUTOMATED; Value: 346; Range: 150-450; Units: k/mm3; Status: F Test: NEUTROPHILS %; Value: 84.9; Range: 36.0-66.0; Abnormal: Above high normal; Units: %; Status: F Test: LYMPH %; Value: 9.5; Range: 24.0-44.0; Abnormal: Below low normal; Units: %; Status: F Test: MONO %; Value: 4.1; Range: 0.0-5.0; Units: %; Status: F Test: EOS %; Value: 0.4; Range: 0.0-3.0; Units: %; Status: F Test: BASO %; Value: 0.4; Range: 0.0-1.0; Units: %; Status: F Test: LARGE UNSTAINED CELL %; Value: 0.7; Range: 0.0-4.0; Units: %; Status: F Test: NEUTROPHILS #; Value: 19.2; Range: 1.8-7.7; Abnormal: Above high normal; Units: K/mm3; Status: F Test: LYMPH #; Value: 2.1; Range: 1.5-6.5; Units: K/mm3; Status: F Test: MONO #; Value: 0.9; Range: 0.0-0.8; Abnormal: Above high normal; Units: K/mm3; Status: F Test: EOS #; Value: 0.1; Range: 0.0-0.50; Units: K/mm3; Status: F Test: BASO #; Value: 0.1; Range: 0.0-0.2; Units: K/mm3; Status: F Test: LARGE UNSTAINED CELL #; Value: 0.2; Range: 0.0-0.4; Units: K/mm3; Status: F Lab Order: [facility]; SPEC'M 03/31/16 14:02 Test: GLUCOSE, FASTING; Value: 524; Range: 70-105; Abnormal: Above upper panic limits; Units: MG/DL; Status: F Test: BLOOD UREA NITROGEN; Value: 23; Range: 7-18; Abnormal: Above high normal; Units: MG/DL; Status: F Test: CREATININE FOR GFR; Value: 1.46; Range: 0.55-1.02; Abnormal: Above high normal; Units: MG/DL; Status: F Test: GLOMERULAR FILTRATION RATE; Value: 47.7; Range: >60; Abnormal: Below low normal; Status: F Test: SODIUM LEVEL; Value: 133; Range: 136-145; Abnormal: Below low normal; Units: MEQ/L; Status: F Test: POTASSIUM SERUM; Value: 5.9; Range: 3.5-5.1; Abnormal: Above high normal; Units: MEQ/L; Status: F Test: CHLORIDE LEVEL; Value: 97; Range: 98-107; Abnormal: Below low normal; Units: MEQ/L; Status: F Test: CARBON DIOXIDE LEVEL; Value: 7; Range: 21-32; Abnormal: Below low normal; Units: MEQ/L; Status: F Test: ANION GAP; Value: 29; Range: 8-16; Abnormal: Above high normal; Units: MEQ/L; Status: F Test: CALCIUM LEVEL; Value: 9.8; Range: 8.5-10.1; Units: MG/DL; Status: F Test Note: ; Units are mL/min/1.73 m2 Chronic Kidney Disease Staging per NKF: Stage I & II GFR >=60 Normal to Mildly Decreased Stage III GFR 30-59 Moderately Decreased Stage IV GFR 15-29 Severely Decreased Stage V GFR <15 Very Little GFR Left ESRD GFR <15 on 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 Lab Order: Fingerstick Blood Sugar; [facility] 13:46 Test: BEDSIDE GLUCOSE; Value: 471; Range: 70-105; Abnormal: Above high normal; Units: MG/DL; Status: F Lab Order: ACETONE/KETONE; [facility] 03/31/16 14:02 Test: ACETONE/KETONE; Value: > 46.00; Range: <2.81; Abnormal: Above high normal; Units: MG/DL; Status: F Lab Order: -Arterial Blood Gas; [facility] 03/31/16 16:04 Test: ABG pH (ARTERIAL); Value: 7.007; Range: 7.350-7.450; Abnormal: Critical Low; Units: UNITS; Status: F Test: ABG PARTIAL PRESSURE CO2; Value: 14.7; Range: 35.0-45.0; Abnormal: Critical Low; Units: mmHg; Status: F Test: ABG PARTIAL PRESSURE O2; Value: 123.4; Range: 75.0-100.0; Abnormal: Above high normal; Units: mmHg; Status: F Test: ABG TOTAL CO2; Value: 4.1; Range: 22.0-29.0; Abnormal: Below low normal; Units: MEQ/L; Status: F Test: ABG HCO3; Value: 3.6; Range: 22.0-26.0; Abnormal: Below low normal; Units: MEQ/L; Status: F Test: ABG BASE EXCESS; Value: -25.8; Range: -2.0-2.0; Abnormal: Below low normal; Status: F Test: ABG STANDARD HCO3; Value: 7.1; Range: 22.0-26.0; Abnormal: Below low normal; Units: MEQ/L; Status: F Test: ABG O2 SATURATION; Value: 97.5; Range: 95.0-99.0; Units: %; Status: F Test: ABG DEVICE; Value: NASAL ALIA; Status: F Lab Order: TROPONIN; [facility] 03/31/16 14:02 Test: TROPONIN I; Value: < 0.02; Range: < 0.10; Units: NG/ML; Status: F Test Note: ; Troponin I Reference Interval for Siemens Idylis LOCI: 99th Percentile= 0.00-0.045 ng/ml Risk Stratification: <= 0.10 ng/ml Decreased Risk for Adverse Clinical Events. 0.10-1.50 ng/ml Increased Risk for Adverse Clinical Events. Evaluation of additional criterion and/or repeat testing in 2-6 hours is suggested to rule out myocardial damage. >= 1.50 ng/ml Indicative of Myocardial Injury. Lab Order: LIPASE; SPEC'M 03/31/16 14:02 Test: LIPASE; Value: 50; Range: 73-393; Abnormal: Below low normal; Units: U/L; Status: F Lab Order: Fingerstick Blood Sugar; SPEC' 03/31/16 16:19 Test: BEDSIDE GLUCOSE; Value: 534; Range: 70-105; Abnormal: Above upper panic limits; Units: MG/DL; Status: F Test Note: ; RN Notified Lab Order: HCG, QUALITATIVE; SPEC' 03/31/16 14:02 Test: HCG, SERUM QUALITATIVE; Value: NEGATIVE; Range: NEGATIVE; Status: F Lab Order: HEMOGLOBIN A1C; [facility] 03/31/16 14:02 Test: HEMOGLOBIN A1c; Value: 8.5; Range: 4.5-6.2; Abnormal: Above high normal; Units: %; Status: F Test: ESTIMATED AVERAGE GLUCOSE; Value: 197; Range: 60-110; Abnormal: Above high normal; Units: MG/DL; Status: F Radiology Order: Chest, 1 View Test: Chest, 1 View REASON FOR EXAMINATION: DKA, cold sxs; Portable chest x-ray: Single view.; ; History: Diabetic ketoacidosis. Cold symptoms.; ; Findings: EKG monitoring electrodes overlie the chest. Heart is not enlarged.; The lungs are symmetrically aerated and clear. Pleural angles are sharp.; ; Impression:; ; No active disease.; ; ; ; ; Unreviewed; Outcome: 15:37 Decision to Hospitalize by Provider. le 17:00 Discharge Assessment: Patient awake, alert and oriented x 3. No cognitive and/or ck1 functional deficits noted. Patient verbalized understanding of disposition instructions. patient administered narcotics - no. No special radiology studies were completed. Property :Personal belongings accompany Pt. 17:09 The following High Risk Discharge criteria are identified: None. Admitted to ICU ck1 accompanied by nurse, accompanied by tech, via stretcher, on monitor, with chart. Condition: stable. Admission hand-off: Report called to Marcia Wagner RN. 17:18 Patient left the ED. ck1 Signatures: Dispatcher [employer] EDFelicita Bocanegra, RN RN mcp Aby Yancey, Reg Reg Fabio Nunez RN RN mlb1 Olamide Gunderson,RN RN ck1 Izabela Hernandes, PROTOHISTORIAN PROTOHISTORIAN Francoise Perez mm15 Vanessa Lyons, PATIENT ATTENDANT PATIENT ATTENDANT elp Syed Duff, PATIENT ATTENDANT PATIENT ATTENDANT d Fabio AldrichRN RN mb9 Matthew Rodriguez,RT RT cs15 Bertha Banda RN kpj Olamide Gunderson RN ck1 Corrections: (The following items were deleted from the chart) 14:52 14:45 Blood Glucose: Notes=Izabela Liu aware., Blood Glucose Reading=High. mb9 mb9 Chart Complete CODY
--- NOTE | 2016-04-02 18:20 | EDDOCDS ---
Physician Documentation [facility] Name: Luz Rizvi Age: 20 yrs Sex: Female : 1995 Arrival Date: 03/31/2016 Time: 11:41 Bed 1 Private MD: Farzana - Complete Info On Cds Disposition: 03/31 15:38 Critical Care:. le Disposition: 03/31/16 15:37 Hospitalization ordered by Matias Alvarado for Observation. 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 - Bed requested for M ICU. - Status is Observation. ck1 - Condition is Stable. - Problem is an acute exacerbation. - Symptoms are unchanged. Historical: - Allergies: Tramadol HCl; - Home Meds: 1. Ambien 10 mg Oral tab 1 tab once daily 2. Paxil 10 mg Oral tab 1 tab once daily 3. Maegan 14 mcg/24 hour (3 years) intrauterine IUD 4. insulin novolog insulin pump - PMHx: Depression; Diabetes - IDDM: uncontrolled; - PSHx: Right ulnar neuropathy repair; Tonsillectomy; - Social history: Smoking status: Patient states former smoker of tobacco. No barriers to communication noted, The patient speaks fluent Georgian, Speaks appropriately for age. - Family history: Not pertinent. - : The pt / caregiver states he / she is not on anticoagulants. Home medication list is obtained from the patient. - Exposure Risk Screening:: None identified. 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 4 in. (162.56 cm); 13:53 BP 121 / 60 (auto/); ck1 13:53 Pulse 85 MON; Pulse Ox 96% ; ck1 14:45 BP 120 / 70; Pulse 119; Resp 24; Temp 98.4(O); Pulse Ox 99% ; mb9 15:18 BP 138 / 60 (auto/); ck1 15:19 Pulse 115 MON; Pulse Ox 100% ; ck1 15:48 BP 138 / 61 (auto/); ck1 15:49 Pulse 119 MON; Pulse Ox 100% ; ck1 16:00 BP 142 / 63 (auto/); ck1 16:00 Pulse 119 MON; Pulse Ox 100% ; ck1 16:15 BP 128 / 76 (auto/); ck1 16:16 Pulse 146 MON; Pulse Ox 75% ; ck1 16:30 BP 145 / 67 (auto/); ck1 16:31 Pulse 123 MON; Pulse Ox 100% ; ck1 16:45 BP 126 / 57 (auto/); ck1 16:46 Pulse 119 MON; Pulse Ox 100% ; ck1 17:00 BP 119 / 55 (auto/); ck1 17:01 Pulse 121 MON; Pulse Ox 100% ; ck1 17:17 BP 99 / 55; Pulse 120; Resp 18; Temp 98.4(T); Pulse Ox 99% on R/A; Pain 0/10; ck1 11:42 Body Mass Index 28.49 (75.30 kg, 162.56 cm) elp MDM: 13:42 Strep Screen, Nursing ordered. le 13:42 IV Saline Lock ordered. le 13:42 Accucheck ordered. le 13:42 NS 0.9% 1000 ml IV at bolus once ordered. le 13:43 -Influenza A&B Rapid Antigen - Nose Ordered. EDMS 13:43 CBC with Diff Ordered. EDMS 13:43 BMP Ordered. EDMS 13:43 Financial registration complete. mm15 13:48 Ondansetron 4 mg IVP once ordered. le 13:50 [facility] Payment Agreement was scanned into [employer] and attached to record. mm15 14:01 Fingerstick Blood Sugar Reviewed. le 14:16 ACETONE/KETONE Ordered. EDMS 14:50 Call Respiratory ordered. le 14:50 NS 0.9% 1000 ml IV at bolus once ordered. le 14:50 Insulin Regular Human 7.5 units IVP once ordered. le 14:50 -Arterial Blood Gas Ordered. EDMS 15:00 Call Respiratory complete. lbd 15:08 Insulin Regular Human 8 units IVP once ordered. mb9 15:08 GATS (NEGATIVE STREP SCREEN) Ordered. EDMS 15:13 CBC with Diff Reviewed. le 15:13 BMP Reviewed. le 15:13 ACETONE/KETONE Reviewed. le 15:13 -Influenza A&B Rapid Antigen - Nose Reviewed. le 15:15 Insulin Regular Human Infusion (0.1units/kg/hr) 0.1 units/kg/hr IV at calculated rate le Per protocol; 7 units/hr ordered. 15:15 Accucheck hourly ordered. le 15:15 BED REQUEST+ADM ordered. EDMS 15:21 Chest, 1 View Ordered. EDMS 15:22 ECG WITH READING ER PHYS+CARDIAG ordered. EDMS 15:45 TROPONIN Ordered. EDMS 15:45 URINALYSIS Ordered. EDMS 15:45 URINE CULTURE Ordered. EDMS 15:45 BLOOD CULTURES Ordered. EDMS 15:45 BLOOD CULTURES Ordered. EDMS 15:56 -Arterial Blood Gas Ordered. EDMS 16:17 -Arterial Blood Gas Reviewed. le 16:17 CBC with Diff Reviewed. le 16:17 BMP Reviewed. le 16:17 ACETONE/KETONE Reviewed. le 16:17 LIPASE Reviewed. le 16:17 TROPONIN Reviewed. le 16:28 Fingerstick Blood Sugar Ordered. EDMS 16:38 DRUG EVAL TOXICOLOGY ED ONLY Ordered. EDMS 16:38 HCG, QUALITATIVE Ordered. EDMS 16:41 Admission / Observation Status ordered. EDMS 16:41 NPO DIET ordered. EDMS 16:41 HEMOGLOBIN A1C Ordered. EDMS 16:42 MAGNESIUM LEVEL Ordered. EDMS 16:42 BASIC METABOLIC PROFILE Ordered. EDMS 16:42 BASIC METABOLIC PROFILE Ordered. EDMS 16:42 BASIC METABOLIC PROFILE Ordered. EDMS 16:42 BASIC METABOLIC PROFILE Ordered. EDMS 16:42 PHOSPHOROUS LEVEL Ordered. EDMS 16:43 RESPIRATORY PANEL Ordered. EDMS 16:50 DRUG EVAL TOXICOLOGY ED ONLY Ordered. EDMS 04/01 10:59 T-Sheet-- Draft Copy was scanned into [employer] and attached to record. gb 10:59 ECG/EKG was scanned into [employer] and attached to record. gb Point of Care Testing: Blood Glucose: 03/31 13:46 Blood Glucose: 471 mg/dL; mb9 14:51 Blood Glucose: High; mb9 13:46 Izabela Alexa aware mb9 14:51 Izabela Alexa aware. No order recieved to draw glucomconfirm. mb9 Ranges: Administered Medications: 14:19 Drug: Ondansetron 4 mg [ondansetron HCl 2 mg/mL intravenous solution (2 mL)] Route: mb9 IVP; Site: right antecubital; 14:44 Follow up: Response: Nausea is unchanged mb9 14:20 Drug: NS 0.9% 1000 ml [sodium chloride 0.9 % intravenous solution] Route: IV; Rate: mb9 bolus; Site: right antecubital; 14:44 Follow up: IV Intake: 1000ml mb9 15:08 Drug: NS 0.9% 1000 ml [sodium chloride 0.9 % intravenous solution] Route: IV; Rate: mb9 bolus; Site: left antecubital; 15:50 Follow up: IV Status: Completed infusion ck1 15:08 Not Given (Other Intervention Used): Insulin Regular Human 7.5 units IVP once mb9 15:09 Drug: Insulin Regular Human 8 units [insulin regular human 100 unit/mL injection mb9 solution (0.08 mL)] {Co-Signature: kpj (Bertha Banda RN).} Route: IVP; Site: right antecubital; 15:27 Drug: Insulin Regular Human Infusion (0.1units/kg/hr) 7.53 units/hr [insulin regular mb9 human 100 unit/mL injection solution] {Co-Signature: ck1 (Olamide Gunderson RN).} Route: IV; Rate: calculated rate; Site: left antecubital; 17:16 Follow up: IV Status: Infusion continued upon admit ck1 Critical Care Time: 15:38 Critical care time: Bedside Care: 20 minutes, Consultation: 10 minutes. Total time: 30 le minutes Signatures: Dispatcher [employer] Renetta Flores, Rn Supplemental Unit lbd Aby Yancey, Reg Reg Fabio Nunez RN RN mlb1 Olamide Gunderson RN RN ck1 Izabela Hernandes, SUPERVISOR [employer]ING [employer]ING [employer]PER[employer]OR [employer] Francoise Perez mm15 Fabio Aldrich RN RN mb9 Casey Cannon RN RN [facility] Bertha Banda RN kpj Olamide Gunderson RN ck1 The chart was reviewed and I authenticate all verbal orders and agree with the evaluation and treatment provided.Corrections: (The following items were deleted from the chart) 14:16 13:50 ACETONE/KETONE+LAB ordered. EDMS EDMS 14:51 14:21 VENOUS BLOOD GAS+LAB ordered. EDMS EDMS 15:53 15:45 LIPASE ordered. EDMS EDMS 15:53 15:45 TROPONIN ordered. EDMS EDMS 16:41 15:52 CONSISTENT CARBOHYDRATE+DIET ordered. EDMS EDMS Attachments: 13:50 [facility] Payment Agreement mm15 04/01 10:59 T-Sheet-- Draft Copy gb 10:59 ECG/EKG gb Chart Complete MTDD
[2016-04-02] MEDS ORDERED: GLUCOSE 4 GM CHEW TABLET PO PRN (19:15)
[2016-04-02] MEDS ORDERED: DEXTROSE 50% 50 ML SYRINGE IV PRN (19:15)
[2016-04-02] MEDS ORDERED: GLUCAGON FOR INJ 1 MG VIAL (J1610) SC PRN (19:15)
[2016-04-02 20:00] VITALS: BP 122/65
[2016-04-02 20:17] LABS: ANION GAP 6 MEQ/L (8-16); BLOOD UREA NITROGEN 7 MG/DL (7-18); CALCIUM LEVEL 8.3 MG/DL (8.5-10.1); CARBON DIOXIDE LEVEL 27 MEQ/L (21-32); CHLORIDE LEVEL 108 MEQ/L (98-107); CREATININE FOR GFR 0.71 MG/DL (0.55-1.02); GLOMERULAR FILTRATION RATE > 60.0 (>60); GLUCOSE, FASTING 113 MG/DL (70-105); POTASSIUM SERUM 3.1 MEQ/L (3.5-5.1); SODIUM LEVEL 141 MEQ/L (136-145)
[2016-04-03] VITALS: BP 124/76
[2016-04-03 04:00] VITALS: BP 116/68
[2016-04-03 04:35] LABS: MEAN CORPUSCULAR HEMOGLOBIN 30.2 pg (27.0-33.0); MEAN CORPUSCULAR HGB CONC 35.1 g/dl (32.0-36.5); MEAN CORPUSCULAR VOLUME 86.1 fl (80.0-96.0); RED CELL DISTRIBUTION WIDTH 12.5 % (11.5-14.5); WHITE BLOOD COUNT 7.5 K/mm3 (4.0-10.0)
[2016-04-03] MEDS: SLF 3 ML SYR IV SCH (04:35)
[2016-04-03 04:58] LABS: ANION GAP 9 MEQ/L (8-16); BLOOD UREA NITROGEN 6 MG/DL (7-18); CALCIUM LEVEL 8.2 MG/DL (8.5-10.1); CARBON DIOXIDE LEVEL 26 MEQ/L (21-32); CHLORIDE LEVEL 110 MEQ/L (98-107); CREATININE FOR GFR 0.56 MG/DL (0.55-1.02); GLOMERULAR FILTRATION RATE > 60.0 (>60); GLUCOSE, FASTING 66 MG/DL (70-105); POTASSIUM SERUM 3.5 MEQ/L (3.5-5.1); SODIUM LEVEL 145 MEQ/L (136-145)
[2016-04-03 08:16] VITALS: BP 122/73
[2016-04-03] MEDS ORDERED: POTASSIUM CHLORIDE 10 MEQ SR TABLET PO ONE (08:30)
[2016-04-03] MEDS: PARoxetine 10MG TABLET PO SCH (09:00)
[2016-04-03] MEDS: ENOXAPARIN 40 MG/0.4 ML SYRINGE (J1650) SC SCH (09:00)
[2016-04-03] MEDS: PANTOPRAZOLE 40MG INJ (PROTONIX) (C9113) IV SCH (09:00)
--- NOTE | 2016-04-03 14:18 | DS.PDOC ---
Discharge Summary General Date of Admission Mar 31, 2016 at 16:36 Date of Discharge Apr 03, 2016 at 10:00 Discharge Summary PROCEDURES PERFORMED DURING STAY: None. COMPLICATIONS/CHIEF COMPLAINT: Dka (Diabetic Ketoacidoses) ADMISSION DIAGNOSES: 1. . Diabetic ketoacidosis 2. . Throat culture positive for group C Streptococcus 3. . DISCHARGE DIAGNOSES: 1. . Diabetic ketoacidosis 2. . Throat culture positive for group C streptococcus 3. . HISTORY OF PRESENT ILLNESS: 20-year-old female with past Meckel history of type 1 diabetes and on an insulin infusion pump presents to the ER 03/31 with a chief complaint of progressively worsening body aches, weakness, and subjective fevers/chills over the last 24-48 hours prior to her presentation to ER. The patient states that she did not have any cough, chest pain, shortness of breath, or any nausea/ vomiting/diarrhea. During this time, the patient states that she has been feeling increasingly thirsty. In the ER, the patient was noted to have a blood glucose level of 524 and she was noted to be in diabetic ketoacidosis. The patient was admitted to the hospitalist service for further evaluation and management. During the patient's hospital physician she was treated with IV fluid hydration and started on IV insulin drip. Once her anion gap was closed, and she was ready to each she was transitioned to using her insulin infusion pump. Of note, it appears that the patient's throat culture was positive for Streptococcus group C, which she was treated for with Rocephin. At this time, the patient's blood sugar levels have stabilized and she has been able to tolerate a diet without any issues. The patient states that she was ready to go home today. I' ve instructed the patient on what to do if she is to come down with a viral illness and/or is not able to take in any food by mouth. In addition, I did also speak to her about the diagnosis of diabetic ketoacidosis and the importance of her to monitor her blood sugar levels during this time. The patient will be discharged today and I will ask her to follow-up with her primary care physician within one week for further management. DISCHARGE MEDICATIONS: Please see below. ALLERGIES: Please see below. PHYSICAL EXAMINATION ON DISCHARGE: VITAL SIGNS: Please see below. General Exam: Positive: Alert, Cooperative, No Acute Distress ENT Exam: Positive: Atraumatic, Mucous membr. moist/pink Chest Exam: Positive: Clear to auscultation, Normal air movement Heart Exam: Positive: Normal S1, Normal S2, Rate Normal Abdomen Exam: Positive: Soft, Negative: Tenderness Extremity Exam: Negative: Edema, Tenderness LABORATORY DATA: Please see below. IMAGING: Portable chest x-ray: Single view. History: Diabetic ketoacidosis. Cold symptoms. Findings: EKG monitoring electrodes overlie the chest. Heart is not enlarged. The lungs are symmetrically aerated and clear. Pleural angles are sharp. Impression: No active disease. VTE Prophylaxis ordered?: Yes DISCHARGE CONDITION: Medically stable DISPOSITION: 01 Home, Self-Care ACTIVITY: As tolerated DIET: Carb consistent diet ITEMS TO FOLLOWUP ON OUTPATIENT: 1. . Follow-up with primary care physician within one to 2 weeks TIME SPENT ON DISCHARGE: Greater than 30 minutes. Vital Signs/I&Os Vital Signs Date Time Temp Pulse Resp B/P Pulse Ox O2 Delivery O2 Flow Rate FiO2 04/03/16 08:16 98.3 90 22 122/73 98 Room Air I&O- Last 24 Hours up to 6 AM 04/03/16 06:00 Intake Total 1500 ml Output Total 3175 ml Balance -1675 ml Laboratory Data Labs 24H Laboratory Tests 2 04/02/16 14:25: Anion Gap 11, Blood Urea Nitrogen 6L, Creatinine 0.82, Sodium Level 142, Potassium Level 3.4L, Chloride Level 108H, Carbon Dioxide Level 23, Calcium Level 8.6, Glomerular Filtration Rate > 60.0 04/02/16 16:39: Bedside Glucose (Misc Panel) 124H 04/02/16 19:50: Anion Gap 6L, Blood Urea Nitrogen 7, Creatinine 0.71, Sodium Level 141, Potassium Level 3.1L, Chloride Level 108H, Carbon Dioxide Level 27, Calcium Level 8.3L, Glomerular Filtration Rate > 60.0 04/02/16 20:32: Bedside Glucose (Misc Panel) 102 04/03/16 04:13: Anion Gap 9, Blood Urea Nitrogen 6L, Creatinine 0.56, Sodium Level 145, Potassium Level 3.5, Chloride Level 110H, Carbon Dioxide Level 26, Calcium Level 8.2L, Glomerular Filtration Rate > 60.0 04/03/16 07:17: Bedside Glucose (Misc Panel) 63L CBC/BMP Laboratory Tests 04/02/16 14:25 Calcium Level 8.6 04/02/16 19:50 Calcium Level 8.3 L 04/03/16 04:13 Calcium Level 8.2 L, Red Blood Count 3.93 L, Mean Corpuscular Volume 86.1, Mean Corpuscular Hemoglobin 30.2, Mean Corpuscular Hemoglobin Concent 35.1, Red Cell Distribution Width 12.5 FSBS Laboratory Tests Test 04/02/16 16:39 04/02/16 20:32 04/03/16 07:17 Range/Units Bedside Glucose (Misc Panel) 124 102 63 70-105 MG/DL Microbiology Microbiology 03/31/16 Blood Culture - Preliminary, Resulted No Growth after 48 hours. All Specime... 03/31/16 Blood Culture - Preliminary, Resulted No Growth after 48 hours. All Specime... 03/31/16 Respiratory Virus Panel (PCR) (RODY) - Final, Complete 03/31/16 MRSA Screen - Final, Complete Staph.aureus Methicillin Resis 03/31/16 Group A Streptococcus Screen (RODY) - Final, Complete Streptococcus Group C 03/31/16 Influenza Virus Type A Antigen - Final, Complete 03/31/16 Influenza Virus Type B Antigen - Final, Complete 03/31/16 Urine Culture - Final, Complete Medications Scheduled (Paroxetine) 10 Mg Tab 10 MG PO DAILY Insulin Aspart (Novolog) 100 U/Ml Inj 0 SC ASDIRECTED HAS INSULIN PUMP Levonorgestrel (Maegan) 13.5 Mg Iud 13.5 MG IU ASDIRECTED INSERTED JANUARY 2016 Scheduled PRN Zolpidem Tartrate (Ambien) 10 Mg Tab 10 MG PO QHS PRN PRN SLEEP Allergies Coded Allergies: Tramadol (Unverified Allergy, Unknown, DIZZINESS / NUMBNESS TO HANDS AND FEET, 03/31/16) JAGRUTI THOMAS MD Apr 03, 2016 14:18
== END 2016-04-03 10:00 | disposition home or self-care (01) | DRG 420 ==
LOC: M ED 11:41 → M ED INP 16:36 → EEVIPCON 16:36 → M ICU 17:21
PROVIDERS: ADMIT Internal Medicine; ATTEND Internal Medicine
DX: E10.10 Type 1 diabetes mellitus with ketoacidosis without coma (principal); N17.9 Acute kidney failure, unspecified; E87.5 Hyperkalemia; G47.00 Insomnia, unspecified; F32.9 Major depressive disorder, single episode, unspecified; Z79.899 Other long term (current) drug therapy; E86.0 Dehydration; J02.0 Streptococcal pharyngitis; Z87.891 Personal history of nicotine dependence

== ENCOUNTER 2016-11-09 19:32 | Emergency (ER) | payer BC ==
[~2016-11-09] VITALS: Ht 162.6 cm; Wt 78.1 kg
[~2016-11-09 19:32] MED LIST: AMBI10TA PO; INSUH10VL SC; PARO10TA3 PO; SKYL13.5 IU
[2016-11-09 21:40] VITALS: BP 120/70
== END 2016-11-09 21:53 | disposition home or self-care (01) ==
LOC: M ED 19:32
DX: T20.10XA Burn of first degree of head, face, and neck, unspecified site, initial encounter (principal); X10.2XXA Contact with fats and cooking oils, initial encounter; Y92.099 Unspecified place in other non-institutional residence as the place of occurrence of the external cause; Y93.89 Activity, other specified; Y99.9 Unspecified external cause status

== ENCOUNTER → 2017-03-30 | Outpatient (REF) | payer BC ==
[2017-03-30 14:45] LABS: CHLAMYDIA DNA AMPLIFICATION NEGATIVE (NEGATIVE); GC DNA AMPLIFICATION NEGATIVE (NEGATIVE)
[2017-04-01 14:13] LABS: HPV HYBRID CAPTURE II Negative (Negative)
== END ==
LOC: M LAB REF 13:00
DX: Z11.3 Encounter for screening for infections with a predominantly sexual mode of transmission (principal)
CPT/HCPCS: 87591

== ENCOUNTER → 2018-04-04 | Outpatient (REF) | payer BC ==
[2018-04-04 21:05] LABS: CHLAMYDIA DNA AMPLIFICATION NEGATIVE (NEGATIVE); GC DNA AMPLIFICATION NEGATIVE (NEGATIVE)
[2018-04-08 00:07] LABS: HPV HYBRID CAPTURE II Negative (Negative)
== END ==
LOC: M LAB REF 17:45
PROVIDERS: ATTEND Obstetrics & Gynecology
DX: Z12.4 Encounter for screening for malignant neoplasm of cervix (principal)
CPT/HCPCS: 87491; 87591; 87624; G0123

== ENCOUNTER → 2018-12-04 | Outpatient (REF) | payer BC | LOC: M LAB REF 16:15 | PROVIDERS: ATTEND Physician Assistant | DX: N39.0 Urinary tract infection, site not specified (principal) ==

== ENCOUNTER → 2019-04-11 | Outpatient (CLI) | payer BC | LOC: M PLALAB 09:13 | PROVIDERS: ATTEND Advanced Practice Midwife | DX: Z13.79 Encounter for other screening for genetic and chromosomal anomalies (principal) ==

== ENCOUNTER → 2020-03-13 | Outpatient (CLI) | payer SELFPAY | LOC: M LABSMTC 12:51 | PROVIDERS: ATTEND Pediatrics | DX: Z20.822 Contact with and (suspected) exposure to COVID-19 (principal) ==

== ENCOUNTER → 2021-09-19 | Outpatient (REF) | payer BC, OTHER | LOC: M LAB REF 16:45 | PROVIDERS: ATTEND Physician Assistant Medical | DX: N39.0 Urinary tract infection, site not specified (principal) ==

== ENCOUNTER → 2024-06-07 | Outpatient (CLI) | payer OTHER | LOC: M RAD 11:00 | PROVIDERS: ATTEND Physician Assistant | DX: E04.2 Nontoxic multinodular goiter (principal) ==